=== PATIENT | female | born 1985 | race Caucasian/White ===

== ENCOUNTER → 2016-10-23 | Outpatient (CLI) | payer BC ==
[~2016-10-23] MED LIST: ABL/5 PO; ACET-1256 PO; ARIP2TAB3 PO; DIVA500T59 PO; MELO7.5T5 PO; METH5TAB4 PO; TRAM-10 PO; gabapentin PO
[2016-10-23 09:37] LABS: BASO % 0.2 %; BASO ABS # 0.01 K/uL (0-0.2); COMPLETE YES; EOS % 1.6 %; HEMATOCRIT 41.2 % (37-47); LYMPH % 48.8 %; LYMPH ABS # 2.78 K/uL (1.2-3.4); MEAN CELL VOLUME 90.4 fL (80-100); MEAN CORPUSCULAR HEMOGLOBIN 31.1 pg (25-34); MEAN CORPUSCULAR HGB CONC 34.5 g/dl (32-36); MEAN PLATELET VOLUME 10.4 fL (7.4-10.4); MONO % 9.6 %; NEUT % 39.8 %; PLATELET COUNT 221 K/uL (130-400); RED BLOOD COUNT 4.56 M/uL (4.2-5.4)
[2016-10-23 09:46] LABS: BLOOD UREA NITROGEN 16 mg/dl (7-18); CALCIUM 8.5 mg/dl (8.5-10.1); CARBON DIOXIDE 23 mmol/L (21-32); CHLORIDE 111 mmol/L (98-107); CREATININE 0.69 mg/dl (0.60-1.20); GLUCOSE 116 mg/dl (70-99); POTASSIUM 4.3 mmol/L (3.5-5.1); SODIUM 142 mmol/L (136-145)
[2016-10-23 09:58] LABS: CHOLESTEROL 161 mg/dl (0-200); CHOLESTEROL/HDL RATIO 3.6; HDL CHOLESTEROL 45 mg/dl; LDL CHOLESTEROL CALCULATED 92 mg/dl; TRIGLYCERIDES 120 mg/dl (0-150); VERY LOW DENSITY LIPOPROT CALC 24 mg/dl
== END | disposition home or self-care (01) ==
LOC: C.LAB1850 07:36
PROVIDERS: ATTEND Nurse Practitioner Adult Health
DX: R53.83 Other fatigue (principal); E66.01 Morbid (severe) obesity due to excess calories; R63.5 Abnormal weight gain

== ENCOUNTER → 2017-01-04 | Outpatient (CLI) | payer BC, OTHER ==
--- NOTE | 2017-01-04 15:19 | DIAGNOSTIC IMAGING REPORT ---
LUMBAR SPINE 5 VIEWS HISTORY: LOWER BACK PAIN COMPARISON: None. FINDINGS: There is no fracture. No subluxation. Disc spaces are preserved. S1 is demonstrated to be a transitional vertebra. The sacrum appears intact. IMPRESSION: No fracture or subluxation within the lumbar spine. Electronically signed by: Colin Jennings M.D. 01/04/2017 3:18 PM Dictated Date/Time: 01/04/2017 3:14 PM
== END | disposition home or self-care (01) ==
LOC: C.RDSM 15:00
PROVIDERS: ATTEND Family Medicine
DX: M54.5 Low back pain (principal)

== ENCOUNTER → 2017-04-08 | Outpatient (CLI) | payer BC ==
[~2017-04-08] MED LIST changes: -ABL/5 PO; -DIVA500T59 PO; -METH5TAB4 PO
== END | disposition home or self-care (01) ==
LOC: C.PAPS 15:51
PROVIDERS: ATTEND Physician Assistant
DX: Z01.419 Encounter for gynecological examination (general) (routine) without abnormal findings (principal)

== ENCOUNTER → 2017-04-08 | Outpatient (CLI) | payer BC ==
[2017-04-11 02:41] LABS: CHLAMYDIA TRACH RNA*** NOT DETECTED (NOT DETECTED); GC (NEIS GONORRHOEAE)RNA** NOT DETECTED (NOT DETECTED)
== END | disposition home or self-care (01) ==
LOC: C.LABSPEC 15:56
PROVIDERS: ATTEND Physician Assistant
DX: Z11.3 Encounter for screening for infections with a predominantly sexual mode of transmission (principal)

== ENCOUNTER 2017-05-30 21:06 | Emergency (ER) | payer BC ==
[~2017-05-30] VITALS: Ht 162.6 cm; Wt 148.5 kg
[~2017-05-30 21:06] MED LIST changes: -TRAM-10 PO
[2017-05-30 21:09] VITALS: TEMP 36.4; Ht 162.6 cm; Wt 148.5 kg
[2017-05-30] MEDS ORDERED: TRAMADOL HCL 50 MG HOME PACK PO ONE (21:45)
[2017-05-30] MEDS ORDERED: TRAM-10 PO (21:48)
[2017-05-30 21:59] VITALS: BP 130/75; PULSE 91; O2SAT 96
--- NOTE | 2017-05-31 04:50 | EMERGENCY ROOM VISIT NOTE ---
History First contact with patient: 21:24 Chief Complaint: HIP PAIN Stated Complaint: PAIN IN HIPS, BACK POP History of Present Illness The patient is a 31 year old female who presents to the Emergency Room with complaints of ongoing right hip pain that radiates down her leg the past several months has been following with pain management and her family care doctor. Patient saw pain management today was given diclofenac and this did not help. Patient had x-rays done today and they were negative for fracture or malalignment of her pelvis. Patient has not seen orthopedic spine for this. Patient had SI joints injections the past and this did not help. Patient states she slipped and strained her back. She describes pain as aching, ranging in severity 8 out of 10 worse with movement and better with rest. She is in physical therapy in the past with no improvement of symptoms. Patient denies numbness, tingling, spinal pain, chest pain, dyspnea, fever, chills, IV drug abuse, loss of bowel or bladder control, saddle anesthesia. She is tolerate by mouth fluids and food. Review of Systems See HPI for pertinent positives & negatives. A total of 10 systems reviewed and were otherwise negative. Past Medical/Surgical History Medical Problems: (1) Bipolar 1 disorder (2) Obesity Family History No significant family history Social History Smoking Status: Current Every Day Smoker Marital Status: single Housing Status: lives alone Occupation Status: employed Current/Historical Medications Scheduled Aripiprazole (Abilify), 1 MG PO DAILY Meloxicam (Mobic), 15 MG PO DAILY [gabapentin], 100 MG PO HS Scheduled PRN Acetaminophen (Tylenol), 1,000 MG PO Q6 PRN for Pain Tramadol (Ultram), 1 TAB PO Q4H PRN for Pain Physical Exam Vital Signs Date Time Temp Pulse Resp B/P (MAP) Pulse Ox O2 Delivery O2 Flow Rate FiO2 05/30/17 21:59 91 22 130/75 96 05/30/17 21:09 36.4 88 20 166/100 98 Room Air Pain Rating (0-10): 10.0 Physical Exam VITALS: Vitals are noted on the nurse's note and reviewed by myself. Vital signs stable. GENERAL: Pleasant female, in no acute distress, nondiaphoretic, well-developed well-nourished. SKIN: Capillary reflex less than 2 seconds. HEENT: Normocephalic. PERRLA. EOMI. Nares patent. Mucous membranes moist. Neck is supple without nuchal rigidity. HEART: Regular rate and rhythm without murmurs gallops or rubs. LUNGS: Clear to auscultation bilaterally without wheezes, rales or rhonchi. No retractions or accessory muscle use. ABDOMEN: Positive bowel sounds x 4. Normal tympanic percussion. Soft, protuberant, obese, nontender, without masses or organomegaly. Denson sign negative. No guarding or rebound tenderness. MUSCULOSKELETAL: No gross musculoskeletal defects. No pedal edema. No calf tenderness. No thoracic or lumbar tenderness on exam. Positive straight leg raise on the right. Pelvis stable. Patient can ambulate without difficulties. NEURO: Patient was alert and oriented to person place and time. Normal sensation to light and sharp touch. Deep tendon reflexes 2+ patella bilaterally.. No focal neurological deficits. Medical Decision & Procedures Medications Administered Medications (Trade) Dose Ordered Sig/Dejan Route Start Time Stop Time Status Last Admin Dose Admin Tramadol HCl (Ultram Home Pack) 1 homepack UD ONCE PO 05/30/17 21:45 05/30/17 21:46 DC 05/30/17 21:58 1 HOMEPACK ED Course Prior records/ancillary studies reviewed. Triage Nursing notes reviewed. The patient's history was concerning for right hip pain down the leg. Differential diagnosis: Etiologies such as musculoskeletal, disc herniation, fracture, aortic disease, metastatic disease, cord compression, discitis, infection, renal colic, gastrointestinal, acute exacerbation of chronic back pain, sciatica, cauda equina, as well as others were entertained. Physical findings: As above. No focal neurologic findings noted. ER treatment provided: Ultram home pack On reassessment the patient felt better. Diagnostics interpreted by me: Deferred This appears to be consistent with lumbar radiculopathy. Patient was requesting a short supply of Ultram. This is given to her. She was counseled on narcotics and informed these are highly addictive. She is advised to see her family care for referral to orthopedic spine and she states she's not getting any improvement with pain management. Patient was advised to return to the ER immediately for severe pain, numbness, tingling, inability to walk, worsening signs or symptoms or as needed. Patient ambulated out of the ER without difficulties. She was neurovascularly and neurologically intact. The patient's physical examination and detailed history did not reveal any red flags for back pain such as those listed in the differential diagnosis. Therefore advanced diagnostics and consultations were felt to be unwarranted. By the evaluation outlined above emergent etiologies such as fracture, aortic disease, metastatic disease, infection, renal colic, gastrointestinal, cord compression, cauda equina, as well as others were deemed relatively unlikely. The pt informed about the findings as listed above. All questions were answered and pleased with the treatment. Return instructions were outlined and the patient was discharged in stable condition. Outpatient prescription management: Ultram Referral: The patient was referred back to primary care physician for follow-up in 2 to 3 days for a recheck of the current condition. Medical Decision As above [place] Drug Monitoring Program Search Results: patient reviewed within database, no issues identified Medication Reconcilliation Current Medication List: was personally reviewed by me Blood Pressure Screening Patient's blood pressure: Elevated blood pressure Blood pressure disposition: Elevated BP felt to be situational Impression Primary Impression: Lumbar radiculopathy, right Departure Information Dispostion Home / Self-Care Condition GOOD Prescriptions Tramadol (Ultram) 50 Mg Tab 1 TAB PO Q4H Y for Pain, #10 TAB For Initial Treatment Prov: Reyna Ervin ., ANGELIC 05/30/17 Forms WORK / SCHOOL INSTRUCTIONS, HOME CARE DOCUMENTATION FORM, IMPORTANT VISIT INFORMATION Patient Instructions [facility], ED Sciatica Additional Instructions Ultram 50 mg: Take 1-2 pills every four hours for breakthrough pain. Avoid alcohol, operating machinery or dangerous equipment, working on ladders or roofs , DRIVING, or situations where being under the influence may be dangerous. It is recommended to use an nzyx-tsu-lhzvxlu stool softener such as Colace, 100mg twice daily while taking this medication to avoid constipation. Ibuprofen(Motrin, Advil) may be used for fever or pain. Use 600mg every six hours as needed. Take with food. Avoid using more than 2400mg in a 24 hour period. Do not use 2400mg per day for more than three consecutive days without physician direction. Prolonged inappropriate use can lead to stomach upset or ulcers. This medication can be taken if you need to drive, work, or perform activities which may be dangerous when taking narcotic pain medication. (AND/OR) Acetaminophen(Tylenol) may be used for fever or pain. Use 1000mg every six hours as needed. Avoid using more than 3000mg in a 24 hour period. This medication can be taken if you need to drive, work, or perform activities which may be dangerous when taking narcotic pain medication. Rest and avoid heavy lifting until your symptoms resolve and then gradually return to full activity. A good rule of thumb is if it hurts your back to perform a certain activity, then it should be avoided until you are healthy again. A heating pad, warm compresses, or a hot shower may help with tight muscles and can be done several times a day as needed. Continue current medications. Return to the ER immediately for any numbness, tingling, severe pain, loss of control of your bowels or bladder, inability to walk, or as needed. Follow up with your primary care physician/orthopedics spine within 3-5 days for a recheck of your current condition.
== END 2017-05-30 22:00 | disposition home or self-care (01) ==
LOC: C.EDB 21:07 → C.EDD 22:00
DX: M54.16 Radiculopathy, lumbar region (principal); F31.9 Bipolar disorder, unspecified; E66.9 Obesity, unspecified; F17.210 Nicotine dependence, cigarettes, uncomplicated; Z79.899 Other long term (current) drug therapy

== ENCOUNTER → 2017-05-30 | Outpatient (CLI) | payer BC ==
--- NOTE | 2017-05-30 09:53 | DIAGNOSTIC IMAGING REPORT ---
RIGHT HIP 2 VIEWS HISTORY: R HIP PAIN, SACROILIITIS Right COMPARISON: None. FINDINGS: No fracture or dislocation within the right hip. The visualized pelvic bones are intact. Cartilage spaces are maintained. Soft tissues are unremarkable. No radiopaque foreign bodies. IMPRESSION: No fracture or dislocation within the right hip. Electronically signed by: Colin Jennings M.D. 05/30/2017 9:51 AM Dictated Date/Time: 05/30/2017 9:49 AM
--- NOTE | 2017-05-30 09:57 | DIAGNOSTIC IMAGING REPORT ---
LEG LENGTH STUDY (WHOLE LEG) CLINICAL HISTORY: R HIP PAIN, SACROLITIS COMPARISON STUDY: None. FINDINGS: AP views of the bilateral lower extremities. The right and left femur measure approximately 47 cm and the right and left tibia measuring approximately 37 cm. No significant leg length discrepancy. Cartilage spaces are maintained. Prior left ACL repair. No fractures within the visualized lower extremities. Soft tissues are unremarkable. IMPRESSION: No significant leg length discrepancy. Electronically signed by: Colin Jennings M.D. 05/30/2017 9:55 AM Dictated Date/Time: 05/30/2017 9:52 AM
== END | disposition home or self-care (01) ==
LOC: C.RADBC 09:17
PROVIDERS: ATTEND Physician Assistant
DX: M25.551 Pain in right hip (principal); M46.1 Sacroiliitis, not elsewhere classified

== ENCOUNTER → 2017-11-14 | Outpatient (CLI) | payer BC ==
[~2017-11-14] MED LIST changes: +TRAM-10 PO
== END | disposition home or self-care (01) ==
LOC: C.LABSPEC 17:30
PROVIDERS: ATTEND Physician Assistant
DX: Z11.3 Encounter for screening for infections with a predominantly sexual mode of transmission (principal)

== ENCOUNTER 2020-01-02 00:30 | Inpatient (IN) ==
[2020-01-02] MEDS ORDERED: OXYTOCIN 30 UNITS/500 ML BAG IV PRN ×2 (00:47→12:50)
[2020-01-02 01:07] LABS: Appearance Urine Cloudy (Clear); Bacteria Urine Automated 1+ (Negative); Bilirubin Urine Negative (Negative); Blood Urine 3+ (Negative); Color Urine Yellow; Epithelial Cell Urine Auto >30 /lpf (0-5); Glucose Urine UA Negative (Negative); Ketones Urine Negative (Negative); Leukocyte Esterase Urine Trace (Negative); Nitrite Urine Negative (Negative); Protein Urine 1+ (Negative); RBC Urine Automated >30 /hpf (0-4); Specific Gravity Urine 1.022 (1.000-1.030); Urobilinogen Urine Negative (Negative)
[2020-01-02 01:16] LABS: Hematocrit (blood only) 42.9 % (37-47); Hemoglobin 15.2 g/dL (12.0-16.0); Mean Corpuscular Hemoglobin 32.8 pg (25-34); Mean Corpuscular Hgb Conc 35.4 g/dL (32-36); Mean Corpuscular Volume 92.7 fL (80-100); Mean Platelet Volume 11.1 fL (7.4-10.4); Platelet Count 176 K/uL (130-400); RDW Coefficient of Variation 13.9 % (11.5-14.5); RDW Standard Deviation 46.7 fL (36.4-46.3); Red Blood Count 4.63 M/uL (4.2-5.4)
--- NOTE | 2020-01-02 01:20 | History & Physical Report ---
Date of Service January 02, 2020 Assessment & Plan (1) Insulin controlled gestational diabetes mellitus (GDM) during : (2) Bipolar 2 disorder: (3) Generalized anxiety disorder: (4) Bipolar 1 disorder: (5) Obesity: (6) Supervision of multigravida of advanced maternal age: 34yo at 38.4 weeks GA. SROM 1. Fetus: Cat 1 2. Delivery: Patient would like to TOLAC/. Consent reviewed and signed. Will plan to proceed with rLTCS is unchanged by am. 3. A2gDM: q1hr BGs. Protocol is >130 4. Substance abuse: UDS. SW consult post 5. GBS negative History of Present Illness Primary Care Provider: Rafa Amor 34yo at 38.4 weeks GA. Present with LOF. Reports large gush and persistent trickle. Reporting that contractions are starting to increase. Denies VB. Good FM. complicated prior for distress at prolonged dilation to 9.5cm. Patient desires TOLAC. Risk of TOLAC/ discussed including failure, need for urgent/emergent and uterine rupture. further complicated by noncompliant A2gDM, AMA, substance abuse during , RH negative, obesity, multiple psychiatric issues and tobacco use. EFW 3300g 74% on 12/22. AC 68% on 12/28 Allergies Allergy/AdvReac Type Severity Reaction Status Date / Time capsaicin Allergy Unknown facial Verified 12/29/19 14:19 swelling diclofenac Allergy Unknown facial Verified 12/29/19 14:19 swelling Diclopak Allergy Unknown facial Verified 06/29/15 19:51 swelling lamotrigine [From Lamictal] Allergy Rash Verified 12/29/19 14:19 Home Medications Home Medications Medication Instructions Recorded Confirmed Type dextroamphetamine-amphetamine 10 mg PO BID 12/29/19 01/02/20 History [Adderall] lurasidone [Latuda] 40 mg PO DAILY PRN 12/29/19 01/02/20 History vit no.[id number] 1 tab PO DAILY 12/29/19 01/02/20 History [ Vitamin] Patient History Medical History (Updated 01/02/20 @ 05:47 by Colin Bagley MD) Bipolar 1 disorder (Chronic) Depression (Chronic) Marijuana abuse Obesity (Chronic) Varicella Surgical History History of section No significant past surgical history S/P ACL repair Status post left knee surgery Family History Father Father Stroke Diabetes Mother Hypertension Social History Preferred Language: Setswana Communication Ability: Effective Billing Customer Service Representative Required: No Beliefs That Will Affect Care: None marital status: single marital status details: KINA Cheney [phone]) [phone] Current Living Situation: Alone current occupational status: unemployed Other Information That Helps Us Care for You: No Feels Safe at Home: Yes Safety Concerns: Feels Safe At This Time Smoking Status: Current every day smoker Tobacco Type: cigarettes ; Cigarettes Per Day: 5-10 ; Do You Dip or Chew Tobacco: No ; Second Hand Exposure: Yes ; Hx Alcohol Use: No Hx Substance Use: Yes substance use type: marijuana Substance Use Type Other:: pt states she has a medical marijuana card Last Used Substance: Just Prior to Arrival Physical Exam Gastrointestinal (Abdomen): Percussion/Palpation: abdomen soft; abdomen nontender, no guarding and abdomen not rigid Genitourinary: OB Exam Abdomen: + vertex and + irregular contractions Manual OB Exam: + cervical dilation 1 cm, + cervical effacement 50%, + station - 2 and + amniotic fluid (Grossly ruptured. ) clear and nitrazine positive OB Exam Monitor Tracing: + external FHT monitor used, + external uterine monitor used, + category I and + normal FHT variability Coding Level of Care Code None Diagnoses Insulin controlled gestational diabetes mellitus (GDM) during O24.414 Bipolar 2 disorder F31.81 Generalized anxiety disorder F41.1 Bipolar 1 disorder F31.9 Obesity E66.9 Supervision of multigravida of advanced maternal age O09.529
[2020-01-02 01:23] LABS: Cast Urine Automated 0 /lpf (0-5)
[2020-01-02 01:27] LABS: Amphetamines+Metham, Urine Pos (Neg); Barbiturates, Urine Neg (Neg); Benzodiazepine, Urine Neg (Neg); Cocaine, Urine Neg (Neg); MDMA (Ecstacy), Urine Neg (Neg); Methadone, Urine Neg (Neg); Opiate, Urine Neg (Neg); Phencyclidine, Urine Neg (Neg)
[2020-01-02] MEDS ORDERED: CALCIUM CARBONATE 500 MG CHEWABLE TAB PO PRN (01:47)
[2020-01-02] MEDS ORDERED: CALCIUM CARBONATE 500 MG CHEWABLE TAB ONE (01:58)
[2020-01-02 02:17] LABS: Creatinine Clr Calc Pharmacy 143.4 ml/min; Est GFR (African American) 132.6; Est GFR (Non-African American) 114.4
[2020-01-02 02:38] LABS: Protein Creatinine Ratio Urine 0.3 (0-0.2); Total Protein Urine Random 42.5 mg/dl (0-11.9)
[2020-01-02] MEDS ORDERED: BUTORPHANOL TARTRATE 1 MG/ML VIAL IV ONE (04:43)
[2020-01-02] MEDS ORDERED: LABETALOL HCL 200 MG TAB PO ONE (05:00)
[2020-01-02] MEDS: LACTATED RINGER'S 1,000 ML IV PRN ×2 (05:15→08:46)
[2020-01-02] MEDS ORDERED: fentaNYL citrate 100 MCG/2 ML VIAL ONE (05:16)
[2020-01-02] MEDS ORDERED: BUPIVACAINE 0.25% 30 ML VIAL ONE (05:16)
[2020-01-02] MEDS ORDERED: ePHEDrine sulfate 50 MG/ML AMP ONE (05:16)
[2020-01-02] MEDS ORDERED: fentaNYL 2MCG/ML ROPIV 1.25MG/ML 100 ML BAG EPI ONE (05:17)
--- NOTE | 2020-01-02 05:47 | Anesthesiology Consultation ---
Date of Service January 02, 2020 The patient would like to try to . She has a history of substance abuse. Assessment & Plan Chart Review Chart Review: Patient NOT seen in Pre Admission Testing and Acceptable Risk for Labor Epidural Consults Requested none ASA ASA3 Proposed Anesthesia Anesthesia Type: Labor Epidural and CSE Risk / Benefits Reviewed With: PT / POA / Parent / Guardian, Accepts Plan and Informed Consent Obtained History Height/Weight Height: 5 ft 4 in Weight: 108.862 kg Allergies Allergy/AdvReac Type Severity Reaction Status Date / Time capsaicin Allergy Unknown facial Verified 12/29/19 14:19 swelling diclofenac Allergy Unknown facial Verified 12/29/19 14:19 swelling Diclopak Allergy Unknown facial Verified 06/29/15 19:51 swelling lamotrigine [From Lamictal] Allergy Rash Verified 12/29/19 14:19 Medications Home Medications Medication Instructions Recorded Confirmed Last Taken dextroamphetamine-amphetamine 10 mg PO BID 12/29/19 01/02/20 01/01/20 21:00 [Adderall] lurasidone [Latuda] 40 mg PO DAILY PRN 12/29/19 01/02/20 01/01/20 04:00 vit no.[id number] 1 tab PO DAILY 12/29/19 01/02/20 01/01/20 14:00 [ Vitamin] Active Medications Generic Name Dose Route Start Last Admin Trade Name Hanyq PRN Reason Stop Dose Admin Lactated Ringer's 1,000 mls @ 125 mls/hr 01/02/20 00:47 01/02/20 05:15 Lr IV 01/04/20 00:46 999 mls/hr .Q8H PRN Administration L&D Protocol Protocol NPO Date Last Intake of Fluids: 01/02/20 Time Last Intake of Fluids: 03:30 Date Last Intake of Solids: 01/02/20 Time Last Intake of Solids: 02:30 Past Medical History Medical History (Updated 01/02/20 @ 05:47 by Colin Bagley MD) Bipolar 1 disorder (Chronic) Depression (Chronic) Marijuana abuse Obesity (Chronic) Varicella Exercise / Class Metabolic Activity II 4-5 Yardwork/Stairs/Walk up hill Past Family History Family History Father Father Stroke Diabetes Mother Hypertension Past Surgical History Surgical History History of section No significant past surgical history S/P ACL repair Status post left knee surgery Past Anesthesia History No Hx of Anesthesia Complications and No Family Hx of Anesthesia Complications History of PONV No Hx of PONV and No Hx of Motion Sickness Social History Smoking Status: Current every day smoker tobacco type: cigarettes Smoking cigarettes per day: 5-10 Do You Dip or Chew Tobacco: No Hx Alcohol Use: No Hx Substance Use: Yes substance use type: marijuana Substance Use Type Other:: pt states she has a medical marijuana card Last Used Substance: Just Prior to Arrival Review of Systems no chest pain or sob Physical Exam Vital Signs Last Vital Signs Temp 36.6 C 01/02/20 03:00 Pulse 92 H 01/02/20 04:38 Resp 20 01/02/20 00:51 BP 141/101 H 01/02/20 04:38 SpO2 98 ENMT Mouth: no TMJ abnormality Thyromental Distance: > or= 3.5 Finger Breadths Mallampati Class: II Neck normal visual inspection Respiratory normal respiratory effort Auscultation: lungs clear to auscultation bilaterally Cardiovascular Rate/Rhythm: regular rate and regular rhythm Musculoskeletal Spine: normal cervical ROM Neurologic moves all extremities Psychiatric Orientation: alert and oriented x 3 Testing Laboratory Results 01/02/20 01:02 01/02/20 01:37 Urine Color Yellow 01/02/20 00:53 Urine Appearance Cloudy (Clear) A 01/02/20 00:53 Urine pH 6.0 (4.5-7.5) 01/02/20 00:53 Ur Specific [place] 1.022 (1.000-1.030) 01/02/20 00:53 Urine Protein 1+ (Negative) H 01/02/20 00:53 Urine Glucose (UA) Negative (Negative) 01/02/20 00:53 Urine Ketones Negative (Negative) 01/02/20 00:53 Urine Nitrite Negative (Negative) 01/02/20 00:53 Ur Leukocyte Esterase Trace (Negative) H 01/02/20 00:53 Urine WBC (Auto) 5-10 /hpf (0-5) H 01/02/20 00:53 Urine RBC (Auto) >30 /hpf (0-4) H 01/02/20 00:53 U Hyaline Cast (Auto) 0 /lpf (0-5) 01/02/20 00:53 U Epithel Cells (Auto) >30 /lpf (0-5) H 01/02/20 00:53 Urine Bacteria (Auto) 1+ (Negative) H 01/02/20 00:53 Blood Type A Negative 01/02/20 01:02 Antibody Screen NEGATIVE 01/02/20 01:02 01/02/20 01/02/20 01/02/20 04:10 03:06 02:02 POC Glucose 87 117 H 99
[2020-01-02] MEDS ORDERED: CEFAZOLIN 3000MG 65 ML IV SCH (06:00)
[2020-01-02] MEDS ORDERED: CITRIC ACID/SODIUM CITRATE 15 ML UDC PO SCH (06:00)
[2020-01-02] MEDS ORDERED: NALOXONE HCL 0.4 MG/1 ML VIAL/CARP IV PRN ×2 (06:13→17:23)
[2020-01-02] MEDS ORDERED: NALOXONE HCL 1 MG in SODIUM CHLORIDE 0.9% 1000ML 1,000 ML IV PRN ×2 (06:13→17:23)
[2020-01-02] MEDS ORDERED: NALBUPHINE HCL INJ 10 MG/ML AMP IV PRN ×2 (06:13→17:23)
[2020-01-02] MEDS ORDERED: ONDANSETRON INJ 2 MG/ML 2 ML VIAL IV PRN ×2 (06:13→17:23)
[2020-01-02] MEDS ORDERED: fentaNYL 2MCG/ML ROPIV 1.25MG/ML 100 ML BAG EPI PRN (06:13)
[2020-01-02] MEDS ORDERED: DiphenhydrAMINE HCL 50 MG/ML VIAL IV PRN ×2 (06:13→17:23)
[2020-01-02] MEDS ORDERED: ePHEDrine sulfate 50 MG/ML AMP IV PRN ×2 (06:13→17:23)
--- NOTE | 2020-01-02 08:07 | Labor Progress Brief Note ---
Date of Service January 02, 2020 Subjective Reason For Note: Requested By RN Current Pain Level(1-10): 10 Presented to bedside to help calm patient so that epidural could be placed Assessment & Plan (1) Insulin controlled gestational diabetes mellitus (GDM) during : (2) Bipolar 2 disorder: (3) Generalized anxiety disorder: (4) Bipolar 1 disorder: (5) Obesity: (6) Supervision of multigravida of advanced maternal age: 34yo at 38.4 weeks GA. SROM 1. Fetus: Cat 1 2. Delivery: Patient would like to TOLAC/. Consent reviewed and signed. Progressing un-augmented. Discussed that if labor stalls a indicated 3. A2gDM: q1hr BGs. Protocol is >130 4. Substance abuse: UDS: Meth/MJ. Confirmation pending. SW consult 5. GBS negative Physical Exam Genitourinary: OB Exam Abdomen: + vertex Manual OB Exam: + cervical dilation (3.5), + cervical effacement 70%, + station -2 and + amniotic fluid clear OB Exam Monitor Tracing: + external FHT monitor used, + external uterine monitor used, + category I and + normal FHT variability; no late decelerations present and no variable decelerations Results & Data Vital Signs (Past 12 Hours) Vital Signs Temp Pulse Resp BP Pulse Ox 01/02/20 08:02 85 100 01/02/20 07:57 82 100 01/02/20 07:52 91 H 100 01/02/20 07:50 86 116/60 01/02/20 07:47 88 100 01/02/20 07:42 81 100 01/02/20 07:37 86 100 01/02/20 07:32 89 100 01/02/20 07:27 78 100 01/02/20 07:22 86 100 01/02/20 07:19 37.0 C 93 H 20 136/76 01/02/20 07:17 84 100 01/02/20 07:13 97 H 140/83 01/02/20 07:12 95 H 100 01/02/20 07:08 97 H 142/86 H 01/02/20 07:07 95 H 100 01/02/20 07:04 94 H 139/86 01/02/20 07:02 84 100 01/02/20 07:00 16 01/02/20 06:58 96 H 135/85 01/02/20 06:57 92 H 100 01/02/20 06:54 92 H 136/86 01/02/20 06:52 98 H 100 01/02/20 06:49 103 H 16 138/85 01/02/20 06:47 103 H 100 01/02/20 06:44 83 16 138/83 01/02/20 06:42 83 99 01/02/20 06:39 18 01/02/20 06:38 87 139/85 01/02/20 06:37 80 98 01/02/20 06:34 102 H 16 137/92 01/02/20 06:32 103 H 100 01/02/20 06:29 100 H 150/83 H 01/02/20 06:28 18 01/02/20 06:27 99 H 98 01/02/20 06:23 98 H 16 134/86 01/02/20 06:22 103 H 98 01/02/20 06:17 112 H 16 130/80 98 01/02/20 06:14 96 H 16 145/83 H 01/02/20 06:12 103 H 18 137/80 98 01/02/20 06:11 108 H 141/88 H 01/02/20 06:10 18 01/02/20 06:08 102 H 16 128/68 01/02/20 06:07 98 H 98 01/02/20 06:06 92 H 138/70 01/02/20 06:05 107 H 18 144/80 H 01/02/20 06:02 99 H 98 01/02/20 06:01 94 H 155/95 H 01/02/20 06:00 36.5 C 18 01/02/20 05:57 104 H 99 01/02/20 05:52 93 H 99 01/02/20 05:47 96 H 99 01/02/20 04:38 92 H 141/101 H 01/02/20 04:09 86 164/108 H 01/02/20 03:00 36.6 C 01/02/20 01:20 86 150/103 H 01/02/20 00:51 36.8 C 86 20 150/103 H Coding Level of Care Code None Diagnoses Insulin controlled gestational diabetes mellitus (GDM) during O24.414 Bipolar 2 disorder F31.81 Generalized anxiety disorder F41.1 Bipolar 1 disorder F31.9 Obesity E66.9 Supervision of multigravida of advanced maternal age O09.529
[2020-01-02] MEDS: AMPHETAMINE ASP/SULF/DEXTRAMPH 10 MG TAB PO SCH ×2 (08:36→19:27)
[2020-01-02] MEDS: NICOTINE 7 MG/24 HR TDSY TD SCH (10:03)
--- NOTE | 2020-01-02 12:45 | Labor Progress Brief Note ---
Date of Service January 02, 2020 Subjective Comfortable with epidural. FHT Cat 1 [place]y Q 2-4 SVE /-2 Discussed with patient that will start pitocin, in the hopes of more effective ctx. Discussed that we will recheck in a few hours. If no cervical change, then will plan for section. She is agreeable to this. Results & Data Vital Signs (Past 12 Hours) Vital Signs Temp Pulse Resp BP Pulse Ox 01/02/20 12:37 97 H 99 01/02/20 12:35 93 H 146/85 H 01/02/20 12:32 102 H 99 01/02/20 12:27 117 H 99 01/02/20 12:22 101 H 100 01/02/20 12:21 90 153/91 H 01/02/20 12:17 106 H 99 01/02/20 12:12 96 H 98 01/02/20 12:07 92 H 99 01/02/20 12:05 102 H 140/96 01/02/20 12:02 100 H 98 01/02/20 11:57 117 H 97 01/02/20 11:52 99 H 99 01/02/20 11:50 104 H 130/71 01/02/20 11:47 97 H 100 01/02/20 11:42 104 H 98 01/02/20 11:37 108 H 100 01/02/20 11:35 108 H 142/89 H 01/02/20 11:32 111 H 100 01/02/20 11:27 98 H 92 01/02/20 11:22 108 H 100 01/02/20 11:20 116 H 139/97 01/02/20 11:17 108 H 100 01/02/20 11:13 116 H 89 L 01/02/20 11:12 104 H 93 01/02/20 11:07 112 H 100 01/02/20 11:06 36.8 C 100 H 20 140/78 01/02/20 11:02 111 H 100 01/02/20 10:57 97 H 100 01/02/20 10:52 102 H 100 01/02/20 10:50 111 H 135/90 01/02/20 10:47 94 H 100 01/02/20 10:46 105 H 88 L 01/02/20 10:42 102 H 100 03/14/20 10:37 95 H 100 01/02/20 10:36 101 H 20 166/86 H 01/02/20 10:32 100 H 100 01/02/20 10:27 96 H 100 01/02/20 10:22 108 H 100 01/02/20 10:21 102 H 147/91 H 01/02/20 10:20 100 H 87 L 01/02/20 10:17 98 H 100 01/02/20 10:12 100 H 99 01/02/20 10:07 100 H 20 151/84 H 100 01/02/20 10:03 92 H 82 L 01/02/20 10:02 90 100 01/02/20 09:58 105 H 87 L 01/02/20 09:57 97 H 100 01/02/20 09:52 97 H 100 01/02/20 09:50 94 H 135/84 01/02/20 09:47 102 H 100 01/02/20 09:42 91 H 98 01/02/20 09:37 101 H 128/80 100 01/02/20 09:32 91 H 100 01/02/20 09:27 92 H 100 01/02/20 09:22 87 100 01/02/20 09:20 92 H 18 131/79 01/02/20 09:17 100 H 100 01/02/20 09:12 94 H 100 01/02/20 09:07 93 H 100 01/02/20 09:05 96 H 137/80 01/02/20 09:02 36.8 C 103 H 20 98 01/02/20 08:57 96 H 100 01/02/20 08:52 94 H 100 01/02/20 08:50 101 H 145/89 H 01/02/20 08:47 100 H 100 01/02/20 08:42 110 H 100 01/02/20 08:37 102 H 100 01/02/20 08:35 101 H 142/88 H 01/02/20 08:32 91 H 100 01/02/20 08:30 20 01/02/20 08:27 86 99 01/02/20 08:22 97 H 100 01/02/20 08:21 88 138/83 01/02/20 08:17 88 100 01/02/20 08:12 88 100 01/02/20 08:07 84 100 01/02/20 08:06 92 H 116/69 01/02/20 08:03 92 H 78 L 01/02/20 08:02 85 100 01/02/20 07:57 82 100 01/02/20 07:52 91 H 100 01/02/20 07:50 86 116/60 01/02/20 07:47 88 100 01/02/20 07:42 81 100 01/02/20 07:37 86 100 01/02/20 07:32 89 100 01/02/20 07:27 78 100 01/02/20 07:22 86 100 01/02/20 07:19 37.0 C 93 H 20 136/76 01/02/20 07:17 84 100 01/02/20 07:13 97 H 140/83 01/02/20 07:12 95 H 100 01/02/20 07:08 97 H 142/86 H 01/02/20 07:07 95 H 100 01/02/20 07:04 94 H 139/86 01/02/20 07:02 84 100 01/02/20 07:00 16 01/02/20 06:58 96 H 135/85 01/02/20 06:57 92 H 100 01/02/20 06:54 92 H 136/86 01/02/20 06:52 98 H 100 01/02/20 06:49 103 H 16 138/85 01/02/20 06:47 103 H 100 01/02/20 06:44 83 16 138/83 01/02/20 06:42 83 99 01/02/20 06:39 18 01/02/20 06:38 87 139/85 01/02/20 06:37 80 98 01/02/20 06:34 102 H 16 137/92 01/02/20 06:32 103 H 100 01/02/20 06:29 100 H 150/83 H 01/02/20 06:28 18 01/02/20 06:27 99 H 98 01/02/20 06:23 98 H 16 134/86 01/02/20 06:22 103 H 98 01/02/20 06:17 112 H 16 130/80 98 01/02/20 06:14 96 H 16 145/83 H 01/02/20 06:12 103 H 18 137/80 98 01/02/20 06:11 108 H 141/88 H 01/02/20 06:10 18 01/02/20 06:08 102 H 16 128/68 01/02/20 06:07 98 H 98 01/02/20 06:06 92 H 138/70 01/02/20 06:05 107 H 18 144/80 H 01/02/20 06:02 99 H 98 01/02/20 06:01 94 H 155/95 H 01/02/20 06:00 36.5 C 18 01/02/20 05:57 104 H 99 01/02/20 05:52 93 H 99 01/02/20 05:47 96 H 99 01/02/20 04:38 92 H 141/101 H 01/02/20 04:09 86 164/108 H 01/02/20 03:00 36.6 C 01/02/20 01:20 86 150/103 H 01/02/20 00:51 36.8 C 86 20 150/103 H Coding Level of Care Code None
[2020-01-02] MEDS ORDERED: CITRIC ACID/SODIUM CITRATE 15 ML UDC ONE (16:17)
--- NOTE | 2020-01-02 16:19 | Labor Progress Brief Note ---
Date of Service January 02, 2020 Subjective Comfortable. FHT Cat 1 [place] Q 2 Cervix: no change, still 4-5/90/-2. I discussed with patient that, even with addition of pitocin, no cervical change throughout the day today. Given her history of requiring when she was dilated to 9.5cm, and given that she has failed to dilate throughout the day today, I am recommending that she undergo repeat section at this time. She is agreeable. Reviewed risks, benefits, alternatives, including bleeding, scarring, damage to surrounding tissues/organs. Discussed that prior surgery increases her risk of complications. Informed consent obtained. Will proceed to OR. Results & Data Vital Signs (Past 12 Hours) Vital Signs Temp Pulse Resp BP Pulse Ox 01/02/20 16:12 89 96 01/02/20 16:07 106 H 98 01/02/20 16:06 96 H 141/90 H 01/02/20 16:02 102 H 99 01/02/20 15:57 104 H 99 01/02/20 15:52 113 H 98 01/02/20 15:50 106 H 142/95 H 01/02/20 15:47 106 H 99 01/02/20 15:42 108 H 100 01/02/20 15:37 101 H 98 01/02/20 15:36 100 H 138/81 01/02/20 15:32 92 H 96 01/02/20 15:27 92 H 100 01/02/20 15:22 95 H 99 01/02/20 15:20 90 136/81 01/02/20 15:17 108 H 99 01/02/20 15:12 100 H 99 01/02/20 15:07 90 99 01/02/20 15:06 37.0 C 88 16 140/85 01/02/20 15:02 85 97 01/02/20 14:57 95 H 96 01/02/20 14:52 84 95 01/02/20 14:51 83 132/75 01/02/20 14:47 86 96 01/02/20 14:42 90 95 01/02/20 14:37 87 97 01/02/20 14:35 86 132/72 01/02/20 14:32 85 95 01/02/20 14:27 88 95 01/02/20 14:22 83 96 03/14/20 14:20 90 132/74 03/20 14:17 90 97 20 14:12 87 95 01/02/20 14:07 90 96 01/02/20 14:06 83 140/76 01/02/20 14:02 87 95 01/02/20 13:57 87 95 01/02/20 13:52 92 H 96 01/02/20 13:50 103 H 119/74 01/02/20 13:47 93 H 96 01/02/20 13:42 87 95 01/02/20 13:37 94 H 98 01/02/20 13:35 110 H 127/79 01/02/20 13:32 87 94 01/02/20 13:27 91 H 94 01/02/20 13:22 100 H 95 01/02/20 13:21 92 H 133/83 01/02/20 13:17 91 H 94 01/02/20 13:12 86 97 01/02/20 13:07 86 95 01/02/20 13:06 93 H 143/83 H 01/02/20 13:02 95 H 99 01/02/20 13:00 36.8 C 20 01/02/20 12:57 96 H 99 01/02/20 12:52 98 H 99 01/02/20 12:50 101 H 146/76 H 01/02/20 12:47 99 H 99 01/02/20 12:42 97 H 100 01/02/20 12:37 97 H 99 01/02/20 12:35 93 H 146/85 H 01/02/20 12:32 102 H 99 01/02/20 12:27 117 H 99 01/02/20 12:22 101 H 100 01/02/20 12:21 90 153/91 H 01/02/20 12:17 106 H 99 01/02/20 12:12 96 H 98 01/02/20 12:07 92 H 99 01/02/20 12:05 102 H 140/96 01/02/20 12:02 100 H 98 01/02/20 11:57 117 H 97 01/02/20 11:52 99 H 99 01/02/20 11:50 104 H 130/71 01/02/20 11:47 97 H 100 01/02/20 11:42 104 H 98 01/02/20 11:37 108 H 100 03/14/20 11:35 108 H 142/89 H 01/02/20 11:32 111 H 100 01/02/20 11:27 98 H 92 01/02/20 11:22 108 H 100 01/02/20 11:20 116 H 139/97 01/02/20 11:17 108 H 100 01/02/20 11:13 116 H 89 L 01/02/20 11:12 104 H 93 01/02/20 11:07 112 H 100 01/02/20 11:06 36.8 C 100 H 20 140/78 01/02/20 11:02 111 H 100 01/02/20 10:57 97 H 100 01/02/20 10:52 102 H 100 01/02/20 10:50 111 H 135/90 01/02/20 10:47 94 H 100 01/02/20 10:46 105 H 88 L 01/02/20 10:42 102 H 100 01/02/20 10:37 95 H 100 01/02/20 10:36 101 H 20 166/86 H 01/02/20 10:32 100 H 100 01/02/20 10:27 96 H 100 01/02/20 10:22 108 H 100 01/02/20 10:21 102 H 147/91 H 01/02/20 10:20 100 H 87 L 01/02/20 10:17 98 H 100 01/02/20 10:12 100 H 99 01/02/20 10:07 100 H 20 151/84 H 100 01/02/20 10:03 92 H 82 L 01/02/20 10:02 90 100 01/02/20 09:58 105 H 87 L 01/02/20 09:57 97 H 100 01/02/20 09:52 97 H 100 01/02/20 09:50 94 H 135/84 01/02/20 09:47 102 H 100 01/02/20 09:42 91 H 98 01/02/20 09:37 101 H 128/80 100 01/02/20 09:32 91 H 100 01/02/20 09:27 92 H 100 01/02/20 09:22 87 100 01/02/20 09:20 92 H 18 131/79 01/02/20 09:17 100 H 100 03/14/20 09:12 94 H 100 01/02/20 09:07 93 H 100 01/02/20 09:05 96 H 137/80 01/02/20 09:02 36.8 C 103 H 20 98 01/02/20 08:57 96 H 100 01/02/20 08:52 94 H 100 01/02/20 08:50 101 H 145/89 H 01/02/20 08:47 100 H 100 01/02/20 08:42 110 H 100 01/02/20 08:37 102 H 100 01/02/20 08:35 101 H 142/88 H 01/02/20 08:32 91 H 100 01/02/20 08:30 20 01/02/20 08:27 86 99 01/02/20 08:22 97 H 100 01/02/20 08:21 88 138/83 01/02/20 08:17 88 100 01/02/20 08:12 88 100 01/02/20 08:07 84 100 01/02/20 08:06 92 H 116/69 01/02/20 08:03 92 H 78 L 01/02/20 08:02 85 100 01/02/20 07:57 82 100 01/02/20 07:52 91 H 100 01/02/20 07:50 86 116/60 01/02/20 07:47 88 100 01/02/20 07:42 81 100 01/02/20 07:37 86 100 01/02/20 07:32 89 100 01/02/20 07:27 78 100 01/02/20 07:22 86 100 01/02/20 07:19 37.0 C 93 H 20 136/76 01/02/20 07:17 84 100 01/02/20 07:13 97 H 140/83 01/02/20 07:12 95 H 100 01/02/20 07:08 97 H 142/86 H 01/02/20 07:07 95 H 100 01/02/20 07:04 94 H 139/86 01/02/20 07:02 84 100 01/02/20 07:00 16 01/02/20 06:58 96 H 135/85 01/02/20 06:57 92 H 100 01/02/20 06:54 92 H 136/86 01/02/20 06:52 98 H 100 01/02/20 06:49 103 H 16 138/85 01/02/20 06:47 103 H 100 01/02/20 06:44 83 16 138/83 01/02/20 06:42 83 99 01/02/20 06:39 18 01/02/20 06:38 87 139/85 01/02/20 06:37 80 98 01/02/20 06:34 102 H 16 137/92 01/02/20 06:32 103 H 100 01/02/20 06:29 100 H 150/83 H 01/02/20 06:28 18 01/02/20 06:27 99 H 98 01/02/20 06:23 98 H 16 134/86 01/02/20 06:22 103 H 98 01/02/20 06:17 112 H 16 130/80 98 01/02/20 06:14 96 H 16 145/83 H 01/02/20 06:12 103 H 18 137/80 98 01/02/20 06:11 108 H 141/88 H 01/02/20 06:10 18 01/02/20 06:08 102 H 16 128/68 01/02/20 06:07 98 H 98 01/02/20 06:06 92 H 138/70 01/02/20 06:05 107 H 18 144/80 H 01/02/20 06:02 99 H 98 01/02/20 06:01 94 H 155/95 H 01/02/20 06:00 36.5 C 18 01/02/20 05:57 104 H 99 01/02/20 05:52 93 H 99 01/02/20 05:47 96 H 99 01/02/20 04:38 92 H 141/101 H Coding Level of Care Code None
[2020-01-02] MEDS ORDERED: MoRPHine SULFATE PF 1 MG/ML 10 ML AMP/VIAL ONE (16:24)
[2020-01-02] MEDS ORDERED: ONDANSETRON INJ 2 MG/ML 2 ML VIAL ONE (17:19)
[2020-01-02] MEDS ORDERED: METOCLOPRAMIDE HCL INJ 5 MG/ML 2 ML VIAL ONE (17:19)
[2020-01-02] MEDS ORDERED: OXYTOCIN 10 UNITS/ML VIAL ONE (17:19)
[2020-01-02] MEDS ORDERED: LIDOCAINE/EPINEPHRINE 2% 1:200,000 20 ML SDV ONE (17:19)
[2020-01-02] MEDS ORDERED: PROPOFOL IV EMULSION 10 MG/ML 20 ML VIAL IV ONE (17:19)
[2020-01-02] MEDS ORDERED: LIDOCAINE HCL 2% MPF (LOCAL) 5 ML VIAL INFIL ONE (17:19)
[2020-01-02] MEDS ORDERED: MoRPHine SULFATE PF 1 MG/ML 10 ML AMP/VIAL EPI ONE (17:23)
[2020-01-02] MEDS ORDERED: PROMETHAZINE HCL 12.5 MG in SODIUM CHLORIDE 0.9% 50 ML IV PRN (17:23)
[2020-01-02] MEDS ORDERED: KETOROLAC 30 MG/ML VIAL IV PRN (17:23)
[2020-01-02] MEDS ORDERED: NALOXONE HCL 0.08 MG in SYRINGE 1.8 ML IV PRN (17:23)
[2020-01-02] MEDS ORDERED: LACTATED RINGER'S 500 ML IV PRN (17:23)
[2020-01-02] MEDS ORDERED: MEPERIDINE HCL 25 MG/ML CARP/VIAL IV PRN (17:23)
[2020-01-02] MEDS ORDERED: DC INTRASPINAL MORPHINE SCH (17:30)
[2020-01-02] MEDS ORDERED: SODIUM CHLORIDE 0.9% 1000ML 1,000 ML IV SCH (17:30)
[2020-01-02] MEDS ORDERED: NO NARCOTICS OR SEDATIVES SCH (17:30)
[2020-01-02 17:50] LABS: Base Excess Cord Arterial Bld -1.5 mEq/L (-9-1.8); CO2 Cord Arterial Blood 64 mmHg (39.1-73.5); HCO3 Cord Arterial Blood 27 mmol/L (19.7-28.5); PO2 Cord Arterial Blood 13 mmHg (4.1-31.7); pH Cord Arterial Blood 7.25 (7.1-7.38)
[2020-01-02 17:52] LABS: Oxygen Sat Cord Arterial Blood < 60.0 % (<60)
--- NOTE | 2020-01-02 17:57 | Operative Report ---
PG Post Operative Report Pre & Post Diagnosis Operation Date: 01/02/20 16:40 Pre-Op Diagnosis: history of section x1. Failure to dilate. Post-Op Diagnosis: Same I identified the patient and participated in the time-out.: Yes Procedure Operation Date: 01/02/20 16:40 Actual Procedures Repeat low transverse Section in - Henrietta Roy DO Surgeon Henrietta Roy DO Oyster Shucker Marion Angelo MD Estimated Blood Loss 700 Findings Consistent with Post-Op Diagnosis Normal appearing uterus, fallopian tubes, ovaries. Large amount of adhesive disease between omentum to fascia. Specimens placenta, cord blood, cord gas Drains toro, clear yellow Anesthesia Type L&D Only Epidural Exists Complications none Disposition Accompanied Patient To Recovery: Yes Disposition: L&D Indications 34yo @ 38 01/25, history of section x 1. Presented with PPROM and began having contractions. Initially during her care period, she had desired a repeat section, but upon presentation to L&D last night, had desired trial of labor. She had signed consent, and progressed to 4-5cm overnight, but did not progress further throughout the day today. Given her history of dilating to 9.5cm and then requiring a , I discussed with her my concerns about continuing to attempt to labor without progression of dilation. She was agreeable to section. She signed informed consent. Description of Procedure The patient was taken to the operating room, where her epidural was redosed by anesthesia. She was prepared and draped in the usual sterile fashion in the supine position with a leftward tilt. Timeout was confirmed. She received 3 g of Ancef preoperatively. A Pfannenstiel skin incision was made with a scalpel and carried through to the underlying layer of fascia. The fascia was nicked at midline and this incision was extended bilaterally. The superior aspect fascial incision was grasped with [place] clamps X2 and the underlying rectus abdominis muscles were dissected sharply and bluntly. There was omentum that had adhered to the fascia. This was carefully dissected. The inferior aspect of the fascial incision was dissected sharply and bluntly. The bladder blade was placed. There was a small adhesion on the left side of the uterus to bladder, this was carefully taken down with Metzenbaum scissors. A low transverse uterine incision was made with a new scalpel. This incision was extended bilaterally. The was delivered from a cephalic presentation. The head was delivered, followed by shoulders and body. The mouth and nose were suctioned on the field and the cord was doubly clamped and cut. The baby was immediately handed off to the waiting registration officer. Cord segment was obtained for cord gases. Cord blood was obtained. The placenta was delivered spontaneously intact with a three-vessel cord. The uterus was exteriorized. The hysterotomy incision was reapproximated using a running locked stitch of 0 Vicryl. A second layer of the same suture was used to imbricate the incision. The posterior uterus was evaluated and found to be intact. The fallopian tubes and ovaries bilaterally appeared normal. The uterus was carefully returned to the abdomen. The hysterotomy incision was visualized and found to be hemostatic. The fascial incision was reapproximated using 0 Vicryl in a running stitch. The subcutaneous tissue was irrigated and reapproximated using 2-0 plain gut in a running stitch. The skin was reapproximated using 4-0 Vicryl in a running subcuticular stitch. Steri-Strips and a bandage were applied. Patient tolerated the procedure well, and is being taken to her room to recover at labor and delivery in stable and good condition. I attest to the content of the Intraoperative Record and any orders documented therein. Any exceptions are noted below.
--- NOTE | 2020-01-02 17:57 | Anesthesia Procedure Note ---
Date of Service January 02, 2020 Anesthesia Post Epidural Note Vital Signs Vital Signs: Temp Pulse Resp BP Pulse Ox 37.0 C 98 H 16 115/54 L 100 01/02/20 15:06 01/02/20 17:53 01/02/20 15:06 01/02/20 17:53 01/02/20 17:53 Notes Mental Status: alert / awake / arousable and participated in evaluation Nausea / Vomiting: adequately controlled Pain: adequately controlled Airway Patency, RR, SpO2: stable & adequate BP & HR: stable & adequate Hydration State: stable & adequate Neuraxial Anesthesia: was administered and sensory block is resolving Anesthetic Complications: no major complications apparent Epidural: Removed without complications and With tip intact
[2020-01-02 17:58] LABS: Base Excess Cord Venous Blood -2.1 mEq/L (-7.7-1.9); Cord Venous Blood HCO3 24 mmol/L (18.4-26.8); Cord Venous Blood PCO2 46 mmHg (30.4-57.2); Cord Venous Blood PO2 30 mmHg (14.1-43.3); Cord Venous Blood pH 7.34 (7.20-7.44)
[2020-01-02] MEDS ORDERED: SUPERCREAM 0.870% 15 GM JAR EXT PRN (18:20)
[2020-01-02] MEDS ORDERED: HYDROCORTISONE ACETATE 25 MG SUPP PR PRN (18:20)
[2020-01-02] MEDS ORDERED: BENZOCAINE 20% AER SPR 82.5 GM CAN EXT PRN (18:20)
[2020-01-02] MEDS ORDERED: DIPHTHERIA/TETANUS/PERTUSSIS 0.5 ML SYR/VIAL IM ONE (18:20)
[2020-01-02] MEDS ORDERED: LACTATED RINGER'S 1,000 ML IV SCH (18:20)
[2020-01-02] MEDS ORDERED: MAGNESIUM HYDROXIDE SUSP 30 ML UDC PO PRN (18:20)
[2020-01-02] MEDS ORDERED: SENNA 8.6 MG TAB PO PRN (18:20)
--- NOTE | 2020-01-02 19:10 | Anesthesiology Progress Note ---
Date of Service January 02, 2020 Anesthesia Post Procedure Vital Signs Vital Signs: Temp Pulse Resp BP Pulse Ox 01/02/20 19:09 96 H 128/76 01/02/20 19:08 96 H 100 01/02/20 19:03 90 100 01/02/20 18:59 87 124/76 01/02/20 18:58 94 H 100 01/02/20 18:53 90 100 01/02/20 18:49 88 126/76 01/02/20 18:48 92 H 95 01/02/20 18:43 95 H 16 122/66 100 01/02/20 18:39 95 H 122/66 01/02/20 18:38 91 H 100 01/02/20 18:33 95 H 20 100 01/02/20 18:29 92 H 113/58 L 01/02/20 18:28 90 100 01/02/20 18:25 94 H 20 100 01/02/20 18:23 94 H 100 01/02/20 18:19 96 H 114/55 L 01/02/20 18:18 92 H 100 01/02/20 18:13 88 16 120/60 100 01/02/20 18:09 120/60 01/02/20 18:08 94 H 100 01/02/20 18:04 99 H 134/56 L 01/02/20 18:03 99 H 20 120/60 100 01/02/20 18:02 157 H 169/131 H 01/02/20 17:58 102 H 85 L 01/02/20 17:53 37.0 C 98 H 20 115/54 L 100 01/02/20 17:48 99 H 100 01/02/20 16:42 94 H 97 01/02/20 16:37 98 H 97 01/02/20 16:35 90 137/88 01/02/20 16:32 94 H 98 01/02/20 16:27 97 H 98 01/02/20 16:22 96 H 100 01/02/20 16:20 100 H 133/90 01/02/20 16:17 89 100 01/02/20 16:12 89 96 01/02/20 16:07 106 H 98 01/02/20 16:06 96 H 141/90 H 01/02/20 16:02 102 H 99 01/02/20 15:57 104 H 99 03/14/20 15:52 113 H 98 20 15:50 106 H 142/95 H 1420 15:47 106 H 99 20 15:42 108 H 100 1420 15:37 101 H 98 1420 15:36 100 H 138/81 1420 15:32 92 H 96 1420 15:27 92 H 100 1420 15:22 95 H 99 1420 15:20 90 136/81 1420 15:17 108 H 99 20 15:12 100 H 99 20 15:07 90 99 1420 15:06 37.0 C 88 16 140/85 01/02/20 15:02 85 97 01/02/20 14:57 95 H 96 01/02/20 14:52 84 95 01/02/20 14:51 83 132/75 20 14:47 86 96 20 14:42 90 95 01/02/20 14:37 87 97 20 14:35 86 132/72 20 14:32 85 95 20 14:27 88 95 20 14:22 83 96 20 14:20 90 132/74 20 14:17 90 97 20 14:12 87 95 20 14:07 90 96 20 14:06 83 140/76 20 14:02 87 95 01/02/20 13:57 87 95 20 13:52 92 H 96 20 13:50 103 H 119/74 1420 13:47 93 H 96 1420 13:42 87 95 1420 13:37 94 H 98 1420 13:35 110 H 127/79 1420 13:32 87 94 1420 13:27 91 H 94 1420 13:22 100 H 95 1420 13:21 92 H 133/83 1420 13:17 91 H 94 1420 13:12 86 97 1420 13:07 86 95 01/02/20 13:06 93 H 143/83 H 01/02/20 13:02 95 H 99 01/02/20 13:00 36.8 C 20 01/02/20 12:57 96 H 99 01/02/20 12:52 98 H 99 01/02/20 12:50 101 H 146/76 H 01/02/20 12:47 99 H 99 01/02/20 12:42 97 H 100 01/02/20 12:37 97 H 99 01/02/20 12:35 93 H 146/85 H 01/02/20 12:32 102 H 99 01/02/20 12:27 117 H 99 01/02/20 12:22 101 H 100 01/02/20 12:21 90 153/91 H 01/02/20 12:17 106 H 99 01/02/20 12:12 96 H 98 01/02/20 12:07 92 H 99 01/02/20 12:05 102 H 140/96 01/02/20 12:02 100 H 98 01/02/20 11:57 117 H 97 01/02/20 11:52 99 H 99 01/02/20 11:50 104 H 130/71 01/02/20 11:47 97 H 100 01/02/20 11:42 104 H 98 01/02/20 11:37 108 H 100 01/02/20 11:35 108 H 142/89 H 01/02/20 11:32 111 H 100 01/02/20 11:27 98 H 92 01/02/20 11:22 108 H 100 01/02/20 11:20 116 H 139/97 01/02/20 11:17 108 H 100 01/02/20 11:13 116 H 89 L 01/02/20 11:12 104 H 93 01/02/20 11:07 112 H 100 01/02/20 11:06 36.8 C 100 H 20 140/78 01/02/20 11:02 111 H 100 01/02/20 10:57 97 H 100 01/02/20 10:52 102 H 100 01/02/20 10:50 111 H 135/90 01/02/20 10:47 94 H 100 01/02/20 10:46 105 H 88 L 01/02/20 10:42 102 H 100 01/02/20 10:37 95 H 100 03/14/20 10:36 101 H 20 166/86 H 01/02/20 10:32 100 H 100 01/02/20 10:27 96 H 100 01/02/20 10:22 108 H 100 01/02/20 10:21 102 H 147/91 H 01/02/20 10:20 100 H 87 L 01/02/20 10:17 98 H 100 01/02/20 10:12 100 H 99 01/02/20 10:07 100 H 20 151/84 H 100 01/02/20 10:03 92 H 82 L 01/02/20 10:02 90 100 01/02/20 09:58 105 H 87 L 01/02/20 09:57 97 H 100 01/02/20 09:52 97 H 100 01/02/20 09:50 94 H 135/84 01/02/20 09:47 102 H 100 01/02/20 09:42 91 H 98 01/02/20 09:37 101 H 128/80 100 01/02/20 09:32 91 H 100 01/02/20 09:27 92 H 100 01/02/20 09:22 87 100 01/02/20 09:20 92 H 18 131/79 01/02/20 09:17 100 H 100 01/02/20 09:12 94 H 100 01/02/20 09:07 93 H 100 01/02/20 09:05 96 H 137/80 01/02/20 09:02 36.8 C 103 H 20 98 01/02/20 08:57 96 H 100 01/02/20 08:52 94 H 100 01/02/20 08:50 101 H 145/89 H 01/02/20 08:47 100 H 100 01/02/20 08:42 110 H 100 01/02/20 08:37 102 H 100 01/02/20 08:35 101 H 142/88 H 01/02/20 08:32 91 H 100 01/02/20 08:30 20 01/02/20 08:27 86 99 01/02/20 08:22 97 H 100 01/02/20 08:21 88 138/83 01/02/20 08:17 88 100 01/02/20 08:12 88 100 01/02/20 08:07 84 100 01/02/20 08:06 92 H 116/69 01/02/20 08:03 92 H 78 L 01/02/20 08:02 85 100 01/02/20 07:57 82 100 01/02/20 07:52 91 H 100 01/02/20 07:50 86 116/60 01/02/20 07:47 88 100 01/02/20 07:42 81 100 01/02/20 07:37 86 100 01/02/20 07:32 89 100 01/02/20 07:27 78 100 01/02/20 07:22 86 100 01/02/20 07:19 37.0 C 93 H 20 136/76 01/02/20 07:17 84 100 01/02/20 07:13 97 H 140/83 01/02/20 07:12 95 H 100 01/02/20 07:08 97 H 142/86 H 01/02/20 07:07 95 H 100 01/02/20 07:04 94 H 139/86 01/02/20 07:02 84 100 01/02/20 07:00 16 01/02/20 06:58 96 H 135/85 01/02/20 06:57 92 H 100 01/02/20 06:54 92 H 136/86 01/02/20 06:52 98 H 100 01/02/20 06:49 103 H 16 138/85 01/02/20 06:47 103 H 100 01/02/20 06:44 83 16 138/83 01/02/20 06:42 83 99 01/02/20 06:39 18 01/02/20 06:38 87 139/85 01/02/20 06:37 80 98 01/02/20 06:34 102 H 16 137/92 01/02/20 06:32 103 H 100 01/02/20 06:29 100 H 150/83 H 01/02/20 06:28 18 01/02/20 06:27 99 H 98 01/02/20 06:23 98 H 16 134/86 01/02/20 06:22 103 H 98 01/02/20 06:17 112 H 16 130/80 98 01/02/20 06:14 96 H 16 145/83 H 01/02/20 06:12 103 H 18 137/80 98 01/02/20 06:11 108 H 141/88 H 01/02/20 06:10 18 01/02/20 06:08 102 H 16 128/68 01/02/20 06:07 98 H 98 01/02/20 06:06 92 H 138/70 01/02/20 06:05 107 H 18 144/80 H 01/02/20 06:02 99 H 98 01/02/20 06:01 94 H 155/95 H 01/02/20 06:00 36.5 C 18 01/02/20 05:57 104 H 99 01/02/20 05:52 93 H 99 01/02/20 05:47 96 H 99 01/02/20 04:38 92 H 141/101 H 01/02/20 04:09 86 164/108 H 01/02/20 03:00 36.6 C 01/02/20 01:20 86 150/103 H 01/02/20 00:51 36.8 C 86 20 150/103 H Transfer of Care Handoff Completed per policy Notes Mental Status: alert / awake / arousable Patient Amnestic to Procedure: Yes Nausea / Vomiting: adequately controlled Pain: adequately controlled Airway Patency, RR, SpO2: stable & adequate BP & HR: stable & adequate Hydration State: stable & adequate Anesthetic Complications: no major complications apparent
[2020-01-02] MEDS ORDERED: OXYTOCIN 30 UNITS in LACTATED RINGER'S 1,000 ML IV SCH (19:15)
[2020-01-02] MEDS: DOCUSATE SODIUM 100 MG CAP PO SCH (20:48)
[2020-01-02] MEDS: SIMETHICONE 80 MG CHEW PO SCH (20:48)
[2020-01-03] MEDS ORDERED: COUGH DROP (SUGAR FREE) LOZ 24 LOZ/1 BOX BUCCAL ONE (07:37)
[2020-01-03] MEDS: AMPHETAMINE ASP/SULF/DEXTRAMPH 10 MG TAB PO SCH (07:56)
--- NOTE | 2020-01-03 08:47 | Obstetrical Progress Note ---
Date of Service January 03, 2020 Assessment & Plan (1) : POD#1 doing well. manager steel is coming to see patient today. Continue to ambulate, PO hydration. Continue routine postop care. Subjective Ambulation: ambulating normally Voiding: no voiding problems Diet Tolerance:: regular diet Lochia:: Moderate POD#1. Is feeling ok. Feels like pain is adequately controlled with pain meds. Review of Systems All systems reviewed & are unremarkable except as noted in HPI & below Physical Exam Constitutional WD/WN, vitals as above no acute distress Respiratory normal respiratory effort Cardiovascular Rate/Rhythm: regular rate and regular rhythm Gastrointestinal (Abdomen) Inspection/Auscultation: abdomen normal to inspection; abdomen not distended Percussion/Palpation: abdomen soft Genitourinary OB Exam Abdomen: + fundal height Fundus: + firm; not tender Results & Data Vital Signs (Past 12 Hours) Vital Signs Temp Pulse Pulse Resp BP BP Pulse Ox 01/03/20 06:30 18 96 01/03/20 04:30 18 94 01/03/20 03:30 18 93 01/03/20 02:24 18 97 01/03/20 01:09 18 99 01/03/20 00:30 18 100 01/02/20 23:35 36.8 C 79 18 133/84 100 01/02/20 22:15 18 100 01/02/20 21:55 36.7 C 88 18 144/84 H 99 01/02/20 21:15 36.8 C 87 20 149/78 H 100 01/02/20 20:53 36.8 C 18 01/02/20 20:47 85 149/78 H
[2020-01-03] MEDS: NICOTINE 14 MG/24 HR PATCH TD SCH (09:00)
[2020-01-03] MEDS: PRENATAL VITAMIN 1 TAB PO SCH (09:00)
[2020-01-03] MEDS: DOCUSATE SODIUM 100 MG CAP PO SCH ×2 (09:00→20:25)
[2020-01-03] MEDS: FERROUS SULFATE 325 MG TAB PO SCH (09:00)
[2020-01-03] MEDS ORDERED: PRENATAL VITAMIN 1 TAB PO SCH (09:00)
[2020-01-03] MEDS: SIMETHICONE 80 MG CHEW PO SCH ×4 (09:00→20:25)
[2020-01-03 09:07] LABS: Basophils # (auto) 0.01 K/uL (0-0.2); Basophils % (auto) 0.1 %; Eosinophils # (auto) 0.06 K/uL (0-0.5); Eosinophils % (auto) 0.4 %; Hematocrit (blood only) 36.4 % (37-47); Hemoglobin 12.4 g/dL (12.0-16.0); Immature Granulocytes # (auto) 0.05 K/uL (0.00-0.02); Immature Granulocytes % (auto) 0.3 %; Lymphocytes # (auto) 2.24 K/uL (1.2-3.4); Lymphocytes % (auto) 15.2 %; Mean Corpuscular Hemoglobin 31.9 pg (25-34); Mean Corpuscular Hgb Conc 34.1 g/dL (32-36); Mean Corpuscular Volume 93.6 fL (80-100); Mean Platelet Volume 11.2 fL (7.4-10.4); Monocytes # (auto) 0.94 K/uL (0.11-0.59); Monocytes % (auto) 6.4 %; Neutrophils # (auto) 11.41 K/uL (1.4-6.5); Neutrophils % (auto) 77.6 %; Platelet Count 103 K/uL (130-400); RDW Coefficient of Variation 14.1 % (11.5-14.5); RDW Standard Deviation 48.1 fL (36.4-46.3); Red Blood Count 3.89 M/uL (4.2-5.4); White Blood Count 14.71 K/uL (4.8-10.8)
[2020-01-03] MEDS: IBUPROFEN 600 MG TAB PO PRN ×3 (10:39→20:25)
[2020-01-03] MEDS: OXYCODONE/ACETAMINOPHEN 5mg/325mg TAB PO PRN ×3 (10:40→21:52)
--- NOTE | 2020-01-03 11:07 | Anesthesiology Progress Note ---
Date of Service January 03, 2020 Anesthesia Post Procedure Vital Signs Vital Signs: Temp Pulse Pulse Resp BP BP Pulse Ox 01/03/20 10:40 16 95 01/03/20 10:11 16 97 01/03/20 09:30 17 96 01/03/20 08:30 17 94 01/03/20 07:30 37.0 C 94 H 17 117/70 97 01/03/20 06:30 18 96 01/03/20 04:30 18 94 01/03/20 03:30 18 93 01/03/20 02:24 18 97 01/03/20 01:09 18 99 01/03/20 00:30 18 100 01/02/20 23:35 36.8 C 79 18 133/84 100 01/02/20 22:15 18 100 01/02/20 21:55 36.7 C 88 18 144/84 H 99 01/02/20 21:15 36.8 C 87 20 149/78 H 100 01/02/20 20:53 36.8 C 18 01/02/20 20:47 85 149/78 H 01/02/20 20:43 92 H 99 01/02/20 20:39 88 144/86 H 01/02/20 20:38 87 98 01/02/20 20:33 89 99 01/02/20 20:29 86 135/77 01/02/20 20:28 89 98 01/02/20 20:23 87 99 01/02/20 20:19 94 H 145/83 H 01/02/20 20:18 94 H 98 01/02/20 20:14 100 H 93 01/02/20 20:13 102 H 93 01/02/20 20:09 89 137/77 01/02/20 20:08 87 97 01/02/20 20:03 90 99 01/02/20 19:59 140/81 01/02/20 19:58 86 100 01/02/20 19:53 83 100 01/02/20 19:52 36.6 C 20 01/02/20 19:49 83 141/82 H 01/02/20 19:48 88 98 01/02/20 19:43 92 H 100 01/02/20 19:39 88 139/74 01/02/20 19:38 91 H 100 01/02/20 19:33 96 H 100 01/02/20 19:29 89 138/76 01/02/20 19:28 86 100 01/02/20 19:23 36.6 C 84 18 99 01/02/20 19:20 92 H 135/60 01/02/20 19:18 88 99 01/02/20 19:13 94 H 99 01/02/20 19:09 96 H 128/76 01/02/20 19:08 96 H 100 01/02/20 19:03 90 100 01/02/20 18:59 87 124/76 01/02/20 18:58 94 H 100 01/02/20 18:53 37.0 C 92 H 20 135/60 99 01/02/20 18:49 88 126/76 01/02/20 18:48 92 H 95 01/02/20 18:43 95 H 16 122/66 100 01/02/20 18:39 95 H 122/66 01/02/20 18:38 91 H 100 01/02/20 18:33 95 H 20 100 01/02/20 18:29 92 H 113/58 L 01/02/20 18:28 90 100 01/02/20 18:25 94 H 20 100 01/02/20 18:23 94 H 100 01/02/20 18:19 96 H 114/55 L 01/02/20 18:18 92 H 100 01/02/20 18:13 88 16 120/60 100 01/02/20 18:09 120/60 01/02/20 18:08 94 H 100 01/02/20 18:04 99 H 134/56 L 01/02/20 18:03 99 H 20 120/60 100 01/02/20 18:02 157 H 169/131 H 01/02/20 17:58 102 H 85 L 01/02/20 17:53 37.0 C 98 H 20 115/54 L 100 01/02/20 17:48 99 H 100 01/02/20 16:42 94 H 97 01/02/20 16:37 98 H 97 01/02/20 16:35 90 137/88 01/02/20 16:32 94 H 98 01/02/20 16:27 97 H 98 01/02/20 16:22 96 H 100 01/02/20 16:20 100 H 133/90 03/14/20 16:17 89 100 20 16:12 89 96 20 16:07 106 H 98 20 16:06 96 H 141/90 H 20 16:02 102 H 99 20 15:57 104 H 99 20 15:52 113 H 98 20 15:50 106 H 142/95 H 1420 15:47 106 H 99 20 15:42 108 H 100 20 15:37 101 H 98 20 15:36 100 H 138/81 1420 15:32 92 H 96 1420 15:27 92 H 100 20 15:22 95 H 99 20 15:20 90 136/81 20 15:17 108 H 99 20 15:12 100 H 99 20 15:07 90 99 01/02/20 15:06 37.0 C 88 16 140/85 01/02/20 15:02 85 97 01/02/20 14:57 95 H 96 01/02/20 14:52 84 95 20 14:51 83 132/75 20 14:47 86 96 20 14:42 90 95 20 14:37 87 97 1420 14:35 86 132/72 1420 14:32 85 95 20 14:27 88 95 20 14:22 83 96 1420 14:20 90 132/74 1420 14:17 90 97 1420 14:12 87 95 1420 14:07 90 96 1420 14:06 83 140/76 1420 14:02 87 95 1420 13:57 87 95 1420 13:52 92 H 96 1420 13:50 103 H 119/74 1420 13:47 93 H 96 1420 13:42 87 95 1420 13:37 94 H 98 1420 13:35 110 H 127/79 1420 13:32 87 94 14/20 13:27 91 H 94 03/14/20 13:22 100 H 95 01/02/20 13:21 92 H 133/83 01/02/20 13:17 91 H 94 01/02/20 13:12 86 97 01/02/20 13:07 86 95 01/02/20 13:06 93 H 143/83 H 01/02/20 13:02 95 H 99 01/02/20 13:00 36.8 C 20 01/02/20 12:57 96 H 99 01/02/20 12:52 98 H 99 01/02/20 12:50 101 H 146/76 H 01/02/20 12:47 99 H 99 01/02/20 12:42 97 H 100 01/02/20 12:37 97 H 99 01/02/20 12:35 93 H 146/85 H 01/02/20 12:32 102 H 99 01/02/20 12:27 117 H 99 01/02/20 12:22 101 H 100 01/02/20 12:21 90 153/91 H 01/02/20 12:17 106 H 99 01/02/20 12:12 96 H 98 01/02/20 12:07 92 H 99 01/02/20 12:05 102 H 140/96 01/02/20 12:02 100 H 98 01/02/20 11:57 117 H 97 01/02/20 11:52 99 H 99 01/02/20 11:50 104 H 130/71 01/02/20 11:47 97 H 100 01/02/20 11:42 104 H 98 01/02/20 11:37 108 H 100 01/02/20 11:35 108 H 142/89 H 01/02/20 11:32 111 H 100 01/02/20 11:27 98 H 92 01/02/20 11:22 108 H 100 01/02/20 11:20 116 H 139/97 01/02/20 11:17 108 H 100 01/02/20 11:13 116 H 89 L 01/02/20 11:12 104 H 93 Pulse Ox 01/03/20 10:40 01/03/20 10:11 01/03/20 09:30 01/03/20 08:30 01/03/20 07:30 97 01/03/20 06:30 01/03/20 04:30 01/03/20 03:30 01/03/20 02:24 01/03/20 01:09 01/03/20 00:30 01/02/20 23:35 01/02/20 22:15 01/02/20 21:55 01/02/20 21:15 01/02/20 20:53 01/02/20 20:47 01/02/20 20:43 01/02/20 20:39 01/02/20 20:38 01/02/20 20:33 01/02/20 20:29 01/02/20 20:28 01/02/20 20:23 01/02/20 20:19 01/02/20 20:18 01/02/20 20:14 01/02/20 20:13 01/02/20 20:09 01/02/20 20:08 01/02/20 20:03 01/02/20 19:59 01/02/20 19:58 01/02/20 19:53 01/02/20 19:52 01/02/20 19:49 01/02/20 19:48 01/02/20 19:43 01/02/20 19:39 01/02/20 19:38 01/02/20 19:33 01/02/20 19:29 01/02/20 19:28 01/02/20 19:23 01/02/20 19:20 01/02/20 19:18 01/02/20 19:13 01/02/20 19:09 01/02/20 19:08 01/02/20 19:03 01/02/20 18:59 01/02/20 18:58 01/02/20 18:53 01/02/20 18:49 01/02/20 18:48 01/02/20 18:43 01/02/20 18:39 01/02/20 18:38 01/02/20 18:33 01/02/20 18:29 01/02/20 18:28 01/02/20 18:25 01/02/20 18:23 01/02/20 18:19 01/02/20 18:18 01/02/20 18:13 01/02/20 18:09 01/02/20 18:08 01/02/20 18:04 01/02/20 18:03 01/02/20 18:02 01/02/20 17:58 01/02/20 17:53 01/02/20 17:48 01/02/20 16:42 01/02/20 16:37 01/02/20 16:35 01/02/20 16:32 01/02/20 16:27 01/02/20 16:22 01/02/20 16:20 01/02/20 16:17 01/02/20 16:12 01/02/20 16:07 01/02/20 16:06 01/02/20 16:02 01/02/20 15:57 01/02/20 15:52 01/02/20 15:50 01/02/20 15:47 01/02/20 15:42 01/02/20 15:37 01/02/20 15:36 01/02/20 15:32 01/02/20 15:27 01/02/20 15:22 01/02/20 15:20 01/02/20 15:17 01/02/20 15:12 01/02/20 15:07 01/02/20 15:06 01/02/20 15:02 01/02/20 14:57 01/02/20 14:52 01/02/20 14:51 01/02/20 14:47 01/02/20 14:42 01/02/20 14:37 01/02/20 14:35 01/02/20 14:32 01/02/20 14:27 01/02/20 14:22 01/02/20 14:20 01/02/20 14:17 01/02/20 14:12 01/02/20 14:07 01/02/20 14:06 01/02/20 14:02 01/02/20 13:57 01/02/20 13:52 01/02/20 13:50 01/02/20 13:47 01/02/20 13:42 01/02/20 13:37 01/02/20 13:35 01/02/20 13:32 01/02/20 13:27 01/02/20 13:22 01/02/20 13:21 01/02/20 13:17 01/02/20 13:12 01/02/20 13:07 01/02/20 13:06 01/02/20 13:02 01/02/20 13:00 01/02/20 12:57 01/02/20 12:52 01/02/20 12:50 01/02/20 12:47 01/02/20 12:42 01/02/20 12:37 01/02/20 12:35 01/02/20 12:32 01/02/20 12:27 01/02/20 12:22 01/02/20 12:21 01/02/20 12:17 01/02/20 12:12 01/02/20 12:07 01/02/20 12:05 01/02/20 12:02 01/02/20 11:57 01/02/20 11:52 01/02/20 11:50 01/02/20 11:47 01/02/20 11:42 01/02/20 11:37 01/02/20 11:35 01/02/20 11:32 01/02/20 11:27 01/02/20 11:22 01/02/20 11:20 01/02/20 11:17 01/02/20 11:13 01/02/20 11:12 Pain Intensity Bilateral Lower Abdomen: Pain Intensity: 5 Transfer of Care Handoff Completed per policy Notes Mental Status: alert / awake / arousable Patient Amnestic to Procedure: Yes Nausea / Vomiting: adequately controlled Pain: adequately controlled Airway Patency, RR, SpO2: stable & adequate BP & HR: stable & adequate Hydration State: stable & adequate Neuraxial Anesthesia: was administered and sensory block resolved Anesthetic Complications: no major complications apparent and Pt Satisfied with anesthetic care
[2020-01-03] MEDS ORDERED: ONDANSETRON INJ 2 MG/ML 2 ML VIAL IV PRN (11:24)
[2020-01-03] MEDS ORDERED: DiphenhydrAMINE HCL 50 MG/ML VIAL IV PRN (11:24)
[2020-01-03] MEDS ORDERED: PROMETHAZINE HCL 25 MG in SODIUM CHLORIDE 0.9% 50 ML IV PRN (11:24)
[2020-01-03] MEDS ORDERED: KETOROLAC 30 MG/ML VIAL IV PRN (11:24)
[2020-01-03] MEDS ORDERED: AMPHETAMINE ASP/SULF/DEXTRAMPH 10 MG TAB PO ONE (19:45)
[2020-01-03] MEDS ORDERED: bisacodyL 5 MG TABEC PO SCH (20:00)
[2020-01-04] MEDS: OXYCODONE/ACETAMINOPHEN 5mg/325mg TAB PO PRN ×5 (02:49→21:05)
[2020-01-04] MEDS: IBUPROFEN 600 MG TAB PO PRN ×5 (02:50→21:03)
[2020-01-04] MEDS ORDERED: bisacodyL 10 MG SUPP PR PRN (06:00)
[2020-01-04] MEDS: AMPHETAMINE ASP/SULF/DEXTRAMPH 10 MG TAB PO SCH ×2 (07:45→14:05)
[2020-01-04] MEDS: NICOTINE 7 MG/24 HR TDSY TD SCH (07:46)
[2020-01-04] MEDS ORDERED: ALPRAZolam 0.5 MG TABLET PO STA (07:53)
[2020-01-04] MEDS: DOCUSATE SODIUM 100 MG CAP PO SCH ×2 (08:31→21:03)
[2020-01-04] MEDS: FERROUS SULFATE 325 MG TAB PO SCH (08:31)
[2020-01-04] MEDS: SIMETHICONE 80 MG CHEW PO SCH ×4 (08:31→21:03)
--- NOTE | 2020-01-04 08:44 | Obstetrical Progress Note ---
Date of Service January 04, 2020 Assessment & Plan (1) : POD#2. See HPI. She also requested STI testing, as her partner (FOB) Jarod has had other partners. I ordered GC/C via urine, and Hep B and C, HIV and RPR by blood. Subjective Ambulation: ambulating normally Voiding: no voiding problems Diet Tolerance:: regular diet Lochia:: Moderate Feeding Type:: breast feeding POD#2. Medically stable. Is very agitated, as she feels that she has had garbage in her room during her whole stay. She also, about 2 hours after I performed morning rounds, became upset that she has not been able to pay her rent. She got dressed and ambulated in the hallways with her envelope of polo in her hand wanting to leave and take a cab to her landlord's office to pay. I discussed with her that I do not recommend that she leave, and in my medical opinion it is not safe for her to do this. If she wants to leave the hospital at this time to travel alone in a cab, she would need to leave against medical advice. Behavioral health unit nurse was called to help with the above scenario and to help diffuse patient's agitation, and she spoke with patient, which definitely had a calming effect. Patient requested her nicotine patch and xanax. Review of Systems All systems reviewed & are unremarkable except as noted in HPI & below Physical Exam Incision CDI Constitutional WD/WN, vitals as above no acute distress Respiratory normal respiratory effort Cardiovascular Rate/Rhythm: regular rate and regular rhythm Gastrointestinal (Abdomen) Inspection/Auscultation: abdomen normal to inspection; abdomen not distended Percussion/Palpation: abdomen soft Genitourinary OB Exam Abdomen: + fundal height Fundus: + firm; not tender Results & Data Vital Signs (Past 12 Hours) Vital Signs Temp Pulse Resp BP 01/04/20 01:07 36.9 C 102 H 18 142/88 H 01/03/20 20:45 36.6 C 120 H 18 139/89
[2020-01-04 09:26] LABS: Hematocrit (blood only) 34.7 % (37-47); Hemoglobin 11.7 g/dL (12.0-16.0)
[2020-01-04] MEDS: NICOTINE 14 MG/24 HR PATCH TD SCH (09:47)
[2020-01-04] MEDS: PRENATAL VITAMIN 1 TAB PO SCH (09:48)
[2020-01-04 10:04] LABS: Hepatitis B Surface Antigen Neg (Neg)
[2020-01-04 10:33] LABS: Hepatitis C IgG 13Yrs+Old_Rflx Neg (Neg)
[2020-01-04] MEDS: ALPRAZolam 0.5 MG TABLET PO PRN (17:00)
[2020-01-04] MEDS: LURASIDONE HCL 40 MG TAB PO PRN (21:03)
[2020-01-04] MEDS ORDERED: COUGH DROP (SUGAR FREE) LOZ 24 LOZ/1 BOX BUCCAL ONE ×2 (23:46→23:47)
[2020-01-05] MEDS: IBUPROFEN 600 MG TAB PO PRN ×5 (00:03→23:25)
[2020-01-05] MEDS: OXYCODONE/ACETAMINOPHEN 5mg/325mg TAB PO PRN ×5 (00:04→23:25)
[2020-01-05 03:50] LABS: Amphetamine Urine, Confirm 2640 ng/mL (<250); Marijuana Quant, GCMS Urine 19 ng/mL (<5); Methamphetamine, Ur Confirm NEGATIVE ng/mL (<250)
[2020-01-05] MEDS: ALPRAZolam 0.5 MG TABLET PO PRN ×3 (04:09→21:19)
--- NOTE | 2020-01-05 06:28 | Obstetrical Progress Note ---
Date of Service <Renuka Smith DO - Last Filed: 01/05/20 06:40> January 05, 2020 Assessment & Plan <Renuka Smith DO - Last Filed: 01/05/20 06:40> (1) Encounter for care and examination after delivery: - Patient is doing well medically. - Pt is psychiatrically complex and will have a meeting with CYS, her mental health caseworker, her mother, and her hospital providers regarding her disposition home and her baby's disposition. - Following discharge will require follow up. - Psych is consulted and aware of this patient. Subjective <Renuka Smith DO - Last Filed: 01/05/20 06:40> 34 yo ; POD # 3 following section delivery at 38.4 weeks; doing well this AM; no abdominal cramping/pain; voiding well, passing gas but no BM; tolerating meals overnight, able to ambulate some within the room. No complaints this AM. Review of Systems Constitutional: denies fever, chills, sweats, headache Respiratory: denies SOB, difficulty breathing Cardiac: denies CP, chest palpitations, chest pressure Breast: denies breast pain : denies dysuria Physical Exam <Renuka Smith DO - Last Filed: 01/05/20 06:40> General: patient is alert and oriented, in NAD Cardiac: +S1/S2, no murmurs rubs or gallops Respiratory: lungs CTA b/l, anteriorly and posteriorly, no wheezes rales or rhonchi, no increased work of breathing, symmetric chest rise, no respiratory distress Abdomen: soft, NT, +bowel sounds Uterus: uterine fundus firm, palpable below the level of the umbilicus. Incision intact, non-tender, non-erythematous, no weeping from incision site Lower Extremities: no LE edema or swelling, no deep calf pain, Dunia's sign negative b/l Results & Data <DO Valeria Luna Last Filed: 01/05/20 06:40> Vital Signs (Past 12 Hours) Vital Signs Temp Pulse Resp BP Pulse Ox 01/04/20 23:40 37.0 C 99 H 18 135/85 99 Laboratory Results Laboratory Results - last 24 hr 01/02/20 01/04/20 01/04/20 00:53 09:07 09:07 Hgb 11.7 L Hct 34.7 L U Amphetamines Confirm 2640 H U Methamphetamin Confrm NEGATIVE U Marijuana THC Carboxy 19 H Drug Screen Comment SEE NOTE RPR Hep Bs Antigen Hepatitis C Antibody HIV 1&2 Ab/P24 Ag 4thGn Blood Type A Negative Antibody Screen Cancelled Screen Negative 01/04/20 01/04/20 01/04/20 09:07 09:07 09:07 Hgb Hct U Amphetamines Confirm U Methamphetamin Confrm U Marijuana THC Carboxy Drug Screen Comment RPR Nonreactive Hep Bs Antigen Neg Hepatitis C Antibody Neg HIV 1&2 Ab/P24 Ag 4thGn Neg Blood Type Antibody Screen Screen Medications Administered Current Medications Alprazolam (Xanax) 0.5 mg PO Q8H PRN PRN Reason: Agitation Stop: 02/03/20 12:55 Last Admin: 01/05/20 04:09 Dose: 0.5 mg Documented by: Amphetamine/Dextroamphetamine (Adderall) 10 mg PO BID@0800,1400 [facility] Stop: 01/17/20 07:59 Last Admin: 01/04/20 14:05 Dose: 10 mg Documented by: Benzocaine (Dermoplast Pain Relieving [place]) 1 appln EXT UD PRN PRN Reason: use on skin as needed Stop: 02/01/20 18:19 Calcium Carbonate (Tums) 500 mg PO Q4H PRN PRN Reason: Indigestion Stop: 02/01/20 01:46 Last Admin: 01/02/20 08:35 Dose: 500 mg Documented by: Cocaine HCl (Supercream 0.870%) 1 gm EXT UD PRN PRN Reason: hemmorrhoidal inflammation Stop: 01/16/20 18:19 Diphenhydramine HCl (Benadryl Capsule) 25 mg PO QID PRN PRN Reason: Itching Stop: 02/02/20 11:23 Diphenhydramine HCl (Benadryl) 25 mg IV QID PRN PRN Reason: Itching Stop: 02/02/20 11:23 Docusate Sodium (Colace) 100 mg PO DAILY@, [facility] Stop: 02/01/20 20:59 Last Admin: 01/04/20 21:03 Dose: 100 mg Documented by: Ferrous Sulfate (Feosol) 325 mg PO DAILY@08 [facility] Stop: 02/02/20 07:59 Last Admin: 01/04/20 08:31 Dose: 325 mg Documented by: Hydrocortisone (Anusol Hc) 25 mg NV BID PRN PRN Reason: Hemorrhoids Stop: 02/01/20 18:19 Lactated Ringer's (Lr) 1,000 mls @ 125 mls/hr IV .Q8H [facility] Stop: 02/01/20 18:19 Last Admin: 01/03/20 05:15 Dose: 125 mls/hr Documented by: Oxytocin 30 units/ Lactated (Ringer's) 1,003 mls @ 125 mls/hr IV .Q8H2M [facility] Stop: 02/01/20 19:14 Last Infusion: 01/03/20 05:15 Dose: Infused Documented by: Promethazine HCl 25 mg/ Sodium (Chloride) 51 mls @ 204 mls/hr IV Q4H PRN PRN Reason: Nausea And Vomiting Stop: 02/02/20 11:23 Ibuprofen (Motrin) 600 mg PO Q4H PRN PRN Reason: Pain Stop: 02/01/20 18:19 Last Admin: 01/05/20 06:35 Dose: 600 mg Documented by: Ketorolac Tromethamine (Toradol) 30 mg IV Q6H PRN PRN Reason: Pain Stop: 01/08/20 11:23 Lurasidone HCl (Latuda) 40 mg PO DAILY PRN PRN Reason: Anxiety Stop: 02/01/20 02:55 Last Admin: 01/04/20 21:03 Dose: 40 mg Documented by: Magnesium Hydroxide (Milk Of Magnesia) 30 ml PO HS PRN PRN Reason: Constipation Stop: 02/01/20 18:19 Last Admin: 01/04/20 02:50 Dose: 30 ml Documented by: Miscellaneous (Remove Nicoderm Patch) 1 ea N/A DAILY@0859 [facility] Stop: 02/03/20 08:58 Last Admin: 01/04/20 09:47 Dose: 1 ea Documented by: Nicotine (Nicoderm Cq) 14 mg TD QAM [facility] Stop: 02/02/20 08:59 Last Admin: 01/04/20 09:47 Dose: 14 mg Documented by: Ondansetron HCl (Zofran) 4 mg IV Q4H PRN PRN Reason: Nausea And Vomiting Stop: 02/02/20 11:23 Oxycodone/Acetaminophen (Percocet 5mg/325mg) 1 - 2 tab PO Q4H PRN PRN Reason: Pain Stop: 01/17/20 11:23 Last Admin: 01/05/20 06:35 Dose: 1 tab Documented by: Jorge Multivit/[place]/Iron/Folic Ac ( Vitamin) 1 tab PO DAILY@08 [facility] Stop: 02/02/20 07:59 Last Admin: 01/04/20 09:48 Dose: 1 tab Documented by: Sennosides (Senokot) 17.2 mg PO HS PRN PRN Reason: Constipation Stop: 02/01/20 18:19 Simethicone (Mylicon) 80 mg PO DAILY@08,,, [facility] Stop: 02/01/20 20:59 Last Admin: 01/04/20 21:03 Dose: 80 mg Documented by: <Ludivina Cole MD - Last Filed: 01/05/20 07:45> Co-Signing Physician Notes At request of the patient's nursing team, to avoid upsetting the patient in advance of the planned separation of mother and baby this morning, I have limited myself to chart review in and discussion with RN and Resident DO providers regarding her exam findings this morning. Physically her recovery has gone well and her incision is c/d/i with a firm fundus below the umbilicus and appropriate lochia. Psychiatrically, the plan has been and continues to be that a team of psych and CYS and security will be assembled and ready for the meeting at 9am where patient will be advised of the decision to place the baby in foster care. Discharge of the patient to home vs to acute psych care is pending the outcome of this discussion. Resident Activity Tracking <Renuka Smith DO - Last Filed: 01/05/20 06:40> Resident Involvement: Resident Care Provided Care Provided: OB Delivery
[2020-01-05] MEDS: PRENATAL VITAMIN 1 TAB PO SCH (08:15)
[2020-01-05] MEDS: FERROUS SULFATE 325 MG TAB PO SCH (08:15)
[2020-01-05] MEDS: SIMETHICONE 80 MG CHEW PO SCH ×4 (08:15→21:19)
[2020-01-05] MEDS: DOCUSATE SODIUM 100 MG CAP PO SCH ×2 (08:15→21:19)
[2020-01-05] MEDS: NICOTINE 14 MG/24 HR PATCH TD SCH (08:15)
[2020-01-05] MEDS ORDERED: Nursing to Pharmacy Communication ONE (13:42)
[2020-01-05] MEDS: AMPHETAMINE ASP/SULF/DEXTRAMPH 10 MG TAB PO SCH (17:03)
[2020-01-05] MEDS: LURASIDONE HCL 40 MG TAB PO PRN (21:19)
[2020-01-06] MEDS: IBUPROFEN 600 MG TAB PO PRN ×4 (06:00→23:56)
[2020-01-06] MEDS: OXYCODONE/ACETAMINOPHEN 5mg/325mg TAB PO PRN ×4 (06:00→23:54)
--- NOTE | 2020-01-06 06:47 | Obstetrical Progress Note ---
Date of Service <Renuka Smith - Last Filed: 01/06/20 06:47> January 06, 2020 Assessment & Plan <Renuka Smith - Last Filed: 01/06/20 06:47> (1) Encounter for care and examination after delivery: 34 yo POD#4 for repeat C section. - Patient is doing well medically. - Pt is psychiatrically complex and will have a meeting with CYS, her mental health egg caser, her mother, and her hospital providers regarding her disposi tion home and her baby's disposition on . - Following discharge will require follow up. - In-house psychiatry is aware of this patient. Subjective <Renuka Hartjuanita - Last Filed: 01/06/20 06:47> 34 yo ; POD # 4 following section delivery at 38.4 weeks; doing well this AM; no abdominal cramping/pain; voiding well, has had a BM; tolerating meals overnight, able to ambulate some within the room. Baby is being bottle fed however patient reports she is" feeling her milk come in" which is un comfortable. She is using cabbage leaves put in the refrigerator to alleviate that discomfort. She does not have a sports bra with her. Review of Systems Constitutional: denies fever, chills, sweats, headache Respiratory: denies SOB, difficulty breathing Cardiac: denies CP, chest palpitations, chest pressure Breast: denies breast pain : denies dysuria Physical Exam <Renuka Smith - Last Filed: 01/06/20 06:47> General: patient is alert and oriented, in NAD Cardiac: +S1/S2, no murmurs rubs or gallops Respiratory: lungs CTA b/l, anteriorly and posteriorly, no wheezes rales or rhonchi, no increased work of breathing, symmetric chest rise, no respiratory distress Abdomen: soft, NT, +bowel sounds Uterus: uterine fundus firm, palpable below the level of the umbilicus. Incision intact, non-tender, non-erythematous, no weeping from incision site Lower Extremities: no LE edema or swelling, no deep calf pain, Dunia's sign negative b/l Results & Data <Renuka Smith DO - Last Filed: 01/06/20 06:47> Vital Signs (Past 12 Hours) Vital Signs Temp Pulse Resp BP Pulse Ox 01/05/20 23:25 36.5 C 106 H 18 121/87 98 Laboratory Results Laboratory Results - last 24 hr 01/05/20 Unknown C.trachomatis RNA Pending N.gonorrhoeae RNA Pending Reference Lab Comment Pending Medications Administered Current Medications Alprazolam (Xanax) 0.5 mg PO Q8H PRN PRN Reason: Agitation Stop: 02/03/20 12:55 Last Admin: 01/05/20 21:19 Dose: 0.5 mg Documented by: Amphetamine/Dextroamphetamine (Adderall) 10 mg PO BID@0800,1600 [facility] Stop: 01/19/20 15:59 Last Admin: 01/05/20 17:03 Dose: 10 mg Documented by: Benzocaine (Dermoplast Pain Relieving [place]) 1 appln EXT UD PRN PRN Reason: use on skin as needed Stop: 02/01/20 18:19 Calcium Carbonate (Tums) 500 mg PO Q4H PRN PRN Reason: Indigestion Stop: 02/01/20 01:46 Last Admin: 01/02/20 08:35 Dose: 500 mg Documented by: Cocaine HCl (Supercream 0.870%) 1 gm EXT UD PRN PRN Reason: hemmorrhoidal inflammation Stop: 01/16/20 18:19 Diphenhydramine HCl (Benadryl Capsule) 25 mg PO QID PRN PRN Reason: Itching Stop: 02/02/20 11:23 Diphenhydramine HCl (Benadryl) 25 mg IV QID PRN PRN Reason: Itching Stop: 02/02/20 11:23 Docusate Sodium (Colace) 100 mg PO DAILY@08,21 [facility] Stop: 02/01/20 20:59 Last Admin: 01/05/20 21:19 Dose: Not Given Documented by: Ferrous Sulfate (Feosol) 325 mg PO DAILY@08 [facility] Stop: 02/02/20 07:59 Last Admin: 01/05/20 08:15 Dose: 325 mg Documented by: Hydrocortisone (Anusol Hc) 25 mg NE BID PRN PRN Reason: Hemorrhoids Stop: 02/01/20 18:19 Lactated Ringer's (Lr) 1,000 mls @ 125 mls/hr IV .Q8H [facility] Stop: 02/01/20 18:19 Last Admin: 01/03/20 05:15 Dose: 125 mls/hr Documented by: Oxytocin 30 units/ Lactated (Ringer's) 1,003 mls @ 125 mls/hr IV .Q8H2M [facility] Stop: 02/01/20 19:14 Last Infusion: 01/03/20 05:15 Dose: Infused Documented by: Promethazine HCl 25 mg/ Sodium (Chloride) 51 mls @ 204 mls/hr IV Q4H PRN PRN Reason: Nausea And Vomiting Stop: 02/02/20 11:23 Ibuprofen (Motrin) 600 mg PO Q4H PRN PRN Reason: Pain Stop: 02/01/20 18:19 Last Admin: 01/06/20 06:00 Dose: 600 mg Documented by: Ketorolac Tromethamine (Toradol) 30 mg IV Q6H PRN PRN Reason: Pain Stop: 01/08/20 11:23 Lurasidone HCl (Latuda) 40 mg PO DAILY PRN PRN Reason: Anxiety Stop: 02/01/20 02:55 Last Admin: 01/05/20 21:19 Dose: 40 mg Documented by: Magnesium Hydroxide (Milk Of Magnesia) 30 ml PO HS PRN PRN Reason: Constipation Stop: 02/01/20 18:19 Last Admin: 01/04/20 02:50 Dose: 30 ml Documented by: Miscellaneous (Remove Nicoderm Patch) 1 ea N/A DAILY@0859 [facility] Stop: 02/03/20 08:58 Last Admin: 01/05/20 08:40 Dose: Not Given Documented by: Nicotine (Nicoderm Cq) 14 mg TD QAM [facility] Stop: 02/02/20 08:59 Last Admin: 01/05/20 08:15 Dose: 14 mg Documented by: Ondansetron HCl (Zofran) 4 mg IV Q4H PRN PRN Reason: Nausea And Vomiting Stop: 02/02/20 11:23 Oxycodone/Acetaminophen (Percocet 5mg/325mg) 1 - 2 tab PO Q4H PRN PRN Reason: Pain Stop: 01/17/20 11:23 Last Admin: 01/06/20 06:00 Dose: 1 tab Documented by: Prenat Multivit/[place]/Iron/Folic Ac ( Vitamin) 1 tab PO DAILY@08 [facility] Stop: 02/02/20 07:59 Last Admin: 01/05/20 08:15 Dose: 1 tab Documented by: Sennosides (Senokot) 17.2 mg PO HS PRN PRN Reason: Constipation Stop: 02/01/20 18:19 Simethicone (Mylicon) 80 mg PO DAILY@08,13,17,21 [facility] Stop: 02/01/20 20:59 Last Admin: 01/05/20 21:19 Dose: Not Given Documented by: <Chris Uribe Jr, MD, FACOG - Last Filed: 01/06/20 06:50> Co-Signing Physician Notes Resident Physician Supervision Note: I was present with Dr. Marie during the history and exam. I discussed the case with the resident and agree with the findings and plan as documented in the note. Any exceptions or clarifications are listed here: [None] Documented By: Chris Uribe Jr, MD, FACOG Resident Activity Tracking <Renuka Smith DO - Last Filed: 01/06/20 06:47> Resident Involvement: Resident Care Provided Care Provided: OB Delivery
[2020-01-06] MEDS: NICOTINE 14 MG/24 HR PATCH TD SCH (08:47)
[2020-01-06] MEDS: DOCUSATE SODIUM 100 MG CAP PO SCH ×2 (08:47→20:11)
[2020-01-06] MEDS: SIMETHICONE 80 MG CHEW PO SCH ×4 (08:47→20:11)
[2020-01-06] MEDS: AMPHETAMINE ASP/SULF/DEXTRAMPH 10 MG TAB PO SCH ×2 (08:47→15:28)
[2020-01-06] MEDS: FERROUS SULFATE 325 MG TAB PO SCH (08:47)
[2020-01-06] MEDS: PRENATAL VITAMIN 1 TAB PO SCH (08:47)
[2020-01-06 12:00] LABS: Chlamydia Trach RNA NOT DETECTED (NOT DETECTED); GC (Neis gonorrhoeae) RNA NOT DETECTED (NOT DETECTED)
[2020-01-06] MEDS: ALPRAZolam 0.5 MG TABLET PO PRN ×2 (12:31→20:11)
[2020-01-07] MEDS: IBUPROFEN 600 MG TAB PO PRN ×3 (04:43→12:32)
[2020-01-07] MEDS: ALPRAZolam 0.5 MG TABLET PO PRN (04:43)
[2020-01-07] MEDS: OXYCODONE/ACETAMINOPHEN 5mg/325mg TAB PO PRN ×3 (04:45→12:32)
--- NOTE | 2020-01-07 06:46 | Obstetrical Progress Note ---
Date of Service <Renuka Smith DO - Last Filed: 01/07/20 06:46> January 07, 2020 Assessment & Plan <Renuka Smith DO - Last Filed: 01/07/20 06:46> (1) Encounter for care and examination after delivery: 34 yo POD#5 for repeat C section. - Patient is doing well medically. - Pt is psychiatrically complex and will have a meeting with [facility], her mental health bilingual case manager, her mother, and her hospital providers regarding her disposi tion home and her baby's disposition today. - Following discharge will require follow up in [address] Roy. - In-house psychiatry is aware of this patient. Subjective <Renuka Smith - Last Filed: 01/07/20 06:46> 34 yo ; POD # 5 following section delivery at 38.4 weeks; doing well this AM; no abdominal cramping/pain; voiding well, has had a BM; tolerating meals overnight, able to ambulate some within the room. Feels that her abdomen feels much better today and she continues to use ice packs as needed. Review of Systems Constitutional: denies fever, chills, sweats, headache Respiratory: denies SOB, difficulty breathing Cardiac: denies CP, chest palpitations, chest pressure Breast: denies breast pain : denies dysuria Physical Exam <Renuka Smith DO - Last Filed: 01/07/20 06:46> General: patient is alert and oriented, in NAD Cardiac: +S1/S2, no murmurs rubs or gallops Respiratory: lungs CTA b/l, anteriorly and posteriorly, no wheezes rales or rhon chi, no increased work of breathing, symmetric chest rise, no respiratory distress Abdomen: soft, NT, +bowel sounds Uterus: uterine fundus firm, palpable below the level of the umbilicus. Incision intact, non-tender, non-erythematous, no weeping from incision site; no bruising Lower Extremities: no LE edema or swelling, no deep calf pain, Dunia's sign negative b/l Results & Data <Renuka Smith - Last Filed: 01/07/20 06:46> Vital Signs (Past 12 Hours) Vital Signs Temp Pulse Resp BP Pulse Ox 01/07/20 00:40 36.9 C 84 20 142/95 H 99 Laboratory Results Laboratory Results - last 24 hr 01/05/20 Unknown C.trachomatis RNA NOT DETECTED N.gonorrhoeae RNA NOT DETECTED Reference Lab Comment SEE NOTE Medications Administered Current Medications Alprazolam (Xanax) 0.5 mg PO Q8H PRN PRN Reason: Agitation Stop: 02/03/20 12:55 Last Admin: 01/07/20 04:43 Dose: 0.5 mg Documented by: Amphetamine/Dextroamphetamine (Adderall) 10 mg PO BID@0800,1600 [place] Stop: 01/19/20 15:59 Last Admin: 01/06/20 15:28 Dose: 10 mg Documented by: Benzocaine (Dermoplast Pain Relieving [place]) 1 appln EXT UD PRN PRN Reason: use on skin as needed Stop: 02/01/20 18:19 Calcium Carbonate (Tums) 500 mg PO Q4H PRN PRN Reason: Indigestion Stop: 02/01/20 01:46 Last Admin: 01/02/20 08:35 Dose: 500 mg Documented by: Cocaine HCl (Supercream 0.870%) 1 gm EXT UD PRN PRN Reason: hemmorrhoidal inflammation Stop: 01/16/20 18:19 Diphenhydramine HCl (Benadryl Capsule) 25 mg PO QID PRN PRN Reason: Itching Stop: 02/02/20 11:23 Diphenhydramine HCl (Benadryl) 25 mg IV QID PRN PRN Reason: Itching Stop: 02/02/20 11:23 Docusate Sodium (Colace) 100 mg PO DAILY@08,21 [place] Stop: 02/01/20 20:59 Last Admin: 01/06/20 20:11 Dose: 100 mg Documented by: Ferrous Sulfate (Feosol) 325 mg PO DAILY@08 [facility] Stop: 02/02/20 07:59 Last Admin: 01/06/20 08:47 Dose: 325 mg Documented by: Hydrocortisone (Anusol Hc) 25 mg TN BID PRN PRN Reason: Hemorrhoids Stop: 02/01/20 18:19 Lactated Ringer's (Lr) 1,000 mls @ 125 mls/hr IV .Q8H [place] Stop: 02/01/20 18:19 Last Admin: 01/03/20 05:15 Dose: 125 mls/hr Documented by: Oxytocin 30 units/ Lactated (Ringer's) 1,003 mls @ 125 mls/hr IV .Q8H2M [facility] Stop: 02/01/20 19:14 Last Infusion: 01/03/20 05:15 Dose: Infused Documented by: Promethazine HCl 25 mg/ Sodium (Chloride) 51 mls @ 204 mls/hr IV Q4H PRN PRN Reason: Nausea And Vomiting Stop: 02/02/20 11:23 Ibuprofen (Motrin) 600 mg PO Q4H PRN PRN Reason: Pain Stop: 02/01/20 18:19 Last Admin: 01/07/20 04:43 Dose: 600 mg Documented by: Ketorolac Tromethamine (Toradol) 30 mg IV Q6H PRN PRN Reason: Pain Stop: 01/08/20 11:23 Lurasidone HCl (Latuda) 40 mg PO DAILY PRN PRN Reason: Anxiety Stop: 02/01/20 02:55 Last Admin: 01/05/20 21:19 Dose: 40 mg Documented by: Magnesium Hydroxide (Milk Of Magnesia) 30 ml PO HS PRN PRN Reason: Constipation Stop: 02/01/20 18:19 Last Admin: 01/04/20 02:50 Dose: 30 ml Documented by: Miscellaneous (Remove Nicoderm Patch) 1 ea N/A DAILY@0859 [facility] Stop: 02/03/20 08:58 Last Admin: 01/06/20 08:47 Dose: 1 ea Documented by: Nicotine (Nicoderm Cq) 14 mg TD QAM [facility] Stop: 02/02/20 08:59 Last Admin: 01/06/20 08:47 Dose: 14 mg Documented by: Ondansetron HCl (Zofran) 4 mg IV Q4H PRN PRN Reason: Nausea And Vomiting Stop: 02/02/20 11:23 Oxycodone/Acetaminophen (Percocet 5mg/325mg) 1 - 2 tab PO Q4H PRN PRN Reason: Pain Stop: 01/17/20 11:23 Last Admin: 01/07/20 04:45 Dose: 2 tab Documented by: Prenat Multivit/[place]/Iron/Folic Ac ( Vitamin) 1 tab PO DAILY@08 [facility] Stop: 02/02/20 07:59 Last Admin: 01/06/20 08:47 Dose: 1 tab Documented by: Sennosides (Senokot) 17.2 mg PO HS PRN PRN Reason: Constipation Stop: 02/01/20 18:19 Simethicone (Mylicon) 80 mg PO DAILY@08,13,17,21 [place] Stop: 02/01/20 20:59 Last Admin: 01/06/20 20:11 Dose: 80 mg Documented by: <Dexter Angelo MD - Last Filed: 01/07/20 07:41> Co-Signing Physician Notes Patient doing well and agree with above findings and plan. Stable for discharge today. Resident Activity Tracking <Renuka Smith DO - Last Filed: 01/07/20 06:46> Resident Involvement: Resident Care Provided Care Provided: OB Delivery
--- NOTE | 2020-01-07 08:21 | Communication Note ---
Date of Service: January 07, 2020 Reviewed case with liaison nurse, OB nurse manager regional [place], and reviewed record. Psychiatry is not formally consulted but nursing management had been involved in developing a plan to manage/inform patient of [facility] taking custody of her child, which is apparently happening today. Based on review of the record, advised that patient's outpatient psychiatry appointment with Dr. Alvarez be confirmed and medical records from this hospitalization be sent to him for coordination of care, and if she has a psychotherapist, that person be informed as well. Her BCM Angelykassie Ramos will be involved in today's meeting. Spoke with Dr. Roy, OB attending, and reviewed case. Reviewed that [facility] was involved prior to hospitalization, and that they met with patient during hospitalization but she has not yet been informed that child is being removed from her custody and placed into foster care. Patient's home psychotropic medications (amphetamine/dextroamphetamine and lurasidone) are ordered here, and she has taken 2 doses of the lurasidone since admission (ordered as needed, unclear if that is how it is prescribed by her psychiatrist). She has not endorsed suicidality, homicidality, or psychosis during her hospitalization, but has had episodes of irritability. She has been eating and sleeping, interacting with her baby, and performing ADLs independently. Her BCM and mother have been involved in discharge planning, and [facility] is coming to talk with her today about custody. We will ask liaison nurse to meet with patient now and get releases for her outpatient clinicians in order to coordinate care and ensure adequate aftercare, and a clinician will assess her after the meeting with [facility] based on her reaction to the news.
[2020-01-07] MEDS: SIMETHICONE 80 MG CHEW PO SCH ×2 (09:09→12:32)
[2020-01-07] MEDS: FERROUS SULFATE 325 MG TAB PO SCH (09:09)
[2020-01-07] MEDS: PRENATAL VITAMIN 1 TAB PO SCH (09:09)
[2020-01-07] MEDS: DOCUSATE SODIUM 100 MG CAP PO SCH (09:10)
[2020-01-07] MEDS: AMPHETAMINE ASP/SULF/DEXTRAMPH 10 MG TAB PO SCH (09:10)
[2020-01-07] MEDS: NICOTINE 14 MG/24 HR PATCH TD SCH (09:10)
[2020-01-07] MEDS ORDERED: HALOPERIDOL 10 MG TABLET PO PRN (10:55)
[2020-01-07] MEDS ORDERED: HALOPERIDOL LACTATE 5 MG/ML 1 ML VIAL IM PRN (10:56)
[2020-01-07] MEDS ORDERED: LORazepam 2 MG/ML VIAL (IM USE) IM PRN (10:58)
[2020-01-07] MEDS ORDERED: LORazepam 1 MG TAB PO PRN (10:59)
[2020-01-07] MEDS ORDERED: LORazepam 0.5 MG TAB ONE (12:10)
--- NOTE | 2020-01-07 13:21 | Psychiatric Consultation ---
Date of Consultation January 07, 2020 Impression / Recommendations Impression Dr. Debra Eng was directly involved in review and discussion of the patient's case and participated in medical decision making regarding treatment recommendations. See separate communication note documented by supervising psychiatrist regarding involvement in the patient's case. RECOMMENDATIONS: 01/06 - Psychiatric consultation requested to provide support, as patient is being informed that she has lost custody of her daughter and her anticipated reaction to this new was uncertain. We have also been asked to assist with discharge planning and coordination of care. - Conversation to inform patient of the custody change was handled by [employer] caseworker protective services in conjunction with patient's outpatient mental health case reviewer. Psychiatric nurse liaison present on periphery, and patient was seen by a clinician following delivery of this news. Pt reportedly handled the situation as reasonably as could be expected. recycling manager verifies patient made no threatening statements to herself or the baby. No indication for inpatient psychiatric treatment was reported. Safety plan was coordinated by patient's case reviewer, to include patient's mother taking her home and remaining with the patient to ensure ongoing safety. - It appears patient's lurasidone was communicated to be a prn medication. Most recent external prescription history indicates instructions to take the medication daily with food. Would recommend patient be discharged with instructions to take 40mg daily at a consistent time with 350 calories. - Pt did sign a release for Dr. Alvarez and we will attempt to coordinate aftercare appointment, planning to send our consult note as well for continuity of care. - Pt has a scheduled appointment with Dr. Alvarez on 01/19/2020 at 1300 - as coordinated by her outpatient case reviewer - Please reach out to our service with any additional questions or updates Psych History Identifying Data 34-year-old female admitted to L&D on 01/02/2020 for spontaneous rupture of membranes to proceed with labor process. Pt gave to a female on 01/02/2020 via section. Although clinicians were not officially consulted for acute recommendations until day of anticipated discharge; our staff had been involved with providing support due to CYS stating patient would lose custody of this infant for positive UDS during . Psychiatric consultation for clinician input for coordination of care and discharge planning was requested today. Chief Complaint "Um...um...hi. Are you here to walk down with us?" History of Present Illness Laila Babb is a 34-year-old female admitted to L&D on 01/02/2020 after spontaneous rupture of membranes and increased frequency of contractions. Pt was permitted to labor, as desire was reportedly for . Due to failure to dilate, decision was made to pursue section. Pt delivered a female infant on 01/02/2020. It was reported to our team that patient had a positive UDS, and that CYS was anticipating patient would lose custody of her . As the exact details and facts regarding this situation are unknown, this provider will refrain from documenting any additional historical information in this document regarding this decision. It should be noted, however, that patient's drug screen is appropriately positive for amphetamines - as she is prescribed Adderall 10mg BID; previously prescribed Vyvanse 20mg and has a documented diagnosis of ADHD. Most recent prescription was filled on 01/03/2020 for #60 tabs of Adderall 10mg. Pt has a documented history of bipolar disorder, anxiety, and ADHD - and is reportedly also prescribed lurasidone 40mg daily. This provider did order prn haloperidol and lorazepam PO/IM options in case they should be required - as it is uncertain the level to which the patient may escalate when informed that she will be losing custody of her baby. Updates received prior to visit from psychiatric nurse liaison and from patient's outpatient mental health case reviewer. They report that patient handled the information from the [employer] caseworker protective services as appropriately as one would imagine. She was notably upset by the news and was reportedly crying. Pt did reportedly request and receive medication to assist to calm her down. Pt took prn lorazepam, and declined the haloperidol. It was reported she remained in appropriate behavioral control for the duration of the conversation and was able to participate in discharge planning. Pt's mental health case reviewer states she has no concerns regarding patient's acute safety at this time. She states patient did not verbalize any language suggestive of thoughts to harm self or her and was future oriented toward reunification. recycling manager did verbalize that she did not feel there was an indication to pursue inpatient psychiatric treatment at this time. It was confirmed that the patient does have an outpatient psychiatric appointment with her psychiatrist on 01/19/2020 at 1300. This provider presented to assess patient after patient had been informed that she would be discharged home from the hospital without her baby; with intention to work with [employer] caseworker protective services toward reunification. Pt was observed to be visible upset, tearful and mildly trembling. Pt acknowledged this provider as we exchanged introductions. She was obviously distracted with her packing and conversation with CYS worker, but was observed to be in good behavioral control during this provider's observation. Past Psychiatric History Current Psychiatric Diagnosis: Bipolar disorder; ANASTACIA; ADHD; marijuana abuse Outpatient Services: Dr. Alvarez - Psychiatrist Allergies Allergy/AdvReac Type Severity Reaction Status Date / Time capsaicin Allergy Unknown facial Verified 12/29/19 14:19 swelling lamotrigine [From Lamictal] Allergy Rash Verified 12/29/19 14:19 Home Medications Home Medications Medication Instructions Recorded Confirmed Type Latuda 40 mg PO DAILY PRN 12/29/19 01/02/20 History Vitamin 1 tab PO DAILY 12/29/19 01/02/20 History dextroamphetamine-amphetamine 10 mg PO BID 12/29/19 01/02/20 History [Adderall] nicotine 14 mg TRANSDERMAL QAM 30 Days #30 01/07/20 Rx ea oxycodone-acetaminophen [Percocet] 1 - 2 tab PO Q4H PRN #14 tab 01/07/20 Rx Substance Abuse History UDS positive for marijuana, with documented history of marijuana abuse. UDS also positive for amphetamine, which would be consistent with verified prescriptions for Adderall. Personal History Living Arrangements: Home Marital Status: Single Number Of Children: 2 - mother has custody of first child; female Beliefs That Will Affect Care: None Patient History Medical History Bipolar 1 disorder (Chronic) Depression (Chronic) HSV-2 (herpes simplex virus 2) infection noted from record from [facility] with last . Patient will not discuss her history Marijuana abuse Obesity (Chronic) psychosis with last Suicide attempt with Adderall in March 2012 TMJ (dislocation of temporomandibular joint) unsure of when diagnosed Varicella Surgical History History of section S/P ACL repair Status post left knee surgery Family History Father Father Stroke Diabetes Mother Hypertension Social History Preferred Language: Bahraini Communication Ability: Effective Refrigeration Systems Installer Required: No Beliefs That Will Affect Care: None marital status: single marital status details: KINA Cheney (45) [phone] Current Living Situation: Alone current occupational status: unemployed Feels Safe at Home: Yes Smoking Status: Current every day smoker Tobacco Type: cigarettes ; Cigarettes Per Day: 5-10 ; Second Hand Exposure: Yes ; Hx Alcohol Use: No Hx Substance Use: Yes substance use type: marijuana Substance Use Type Other:: pt states she has a medical marijuana card Last Used Substance: Just Prior to Arrival Physical Exam Psychiatric: Orientation: alert, oriented x 3 and cooperative Apperance: appropriately dressed, appropriately groomed and appeared stated age Eye Contact: + fair eye contact (intermittent direct eye contact, distracted with other activity in the room) Motor Behavior: steady gait and station and no abnormal motor movements Speech: normal rate/rhythm/volume of speech Affect: + depressed affect and + tearful affect Thought Process: goal directed thought process and thought association intact Insight: + fair insight Judgement: + fair judgement Mental status examination is admittedly limited by duration of encounter - patient was distracted with other activity in the room and therefore was not overly engaged in conversation with this provider. Vital Signs (Past 24 Hours): Last Vital Signs Temp 36.5 C 01/07/20 08:13 Pulse 87 01/07/20 08:13 Resp 20 01/07/20 08:13 BP 142/89 H 01/07/20 08:13 Pulse Ox 98 01/07/20 08:13 Review of Systems Interaction with patient was somewhat limited given the unique situation; she did not verbalize any physical complaints during this provider's interaction. Results & Data (PSY) Medications Administered Alprazolam (Xanax) 0.5 mg PO Q8H PRN PRN Reason: Agitation Stop: 02/03/20 12:55 Last Admin: 01/07/20 04:43 Dose: 0.5 mg Documented by: [id number] Admin: 01/06/20 20:11 Dose: 0.5 mg Documented by: [id number] Admin: 01/06/20 12:31 Dose: 0.5 mg Documented by: [id number] Admin: 01/05/20 21:19 Dose: 0.5 mg Documented by: [id number] Admin: 01/05/20 12:32 Dose: 0.5 mg Documented by: [id number] Admin: 01/05/20 04:09 Dose: 0.5 mg Documented by: [id number] Admin: 01/04/20 17:00 Dose: 0.5 mg Documented by: [id number] Amphetamine/Dextroamphetamine (Adderall) 10 mg PO BID@0800,1600 [facility] Stop: 01/19/20 15:59 Last Admin: 01/07/20 09:10 Dose: 10 mg Documented by: [id number] Admin: 01/06/20 15:28 Dose: 10 mg Documented by: [id number] Admin: 01/06/20 08:47 Dose: 10 mg Documented by: [id number] Admin: 01/05/20 17:03 Dose: 10 mg Documented by: [id number] Calcium Carbonate (Tums) 500 mg PO Q4H PRN PRN Reason: Indigestion Stop: 02/01/20 01:46 Last Admin: 01/02/20 08:35 Dose: 500 mg Documented by: [id number] Docusate Sodium (Colace) 100 mg PO DAILY@08, [facility] Stop: 02/01/20 20:59 Last Admin: 01/07/20 09:10 Dose: 100 mg Documented by: [id number] Admin: 01/06/20 20:11 Dose: 100 mg Documented by: [id number] Admin: 01/06/20 08:47 Dose: 100 mg Documented by: [id number] Admin: 01/05/20 21:19 Dose: Not Given Documented by: [id number] Admin: 01/05/20 08:15 Dose: 100 mg Documented by: [id number] Admin: 01/04/20 21:03 Dose: 100 mg Documented by: [id number] Admin: 01/04/20 08:31 Dose: 100 mg Documented by: [id number] Admin: 01/03/20 20:25 Dose: 100 mg Documented by: [id number] Admin: 01/03/20 09:00 Dose: 100 mg Documented by: [id number] Admin: 01/02/20 20:48 Dose: 100 mg Documented by: [id number] Ferrous Sulfate (Feosol) 325 mg PO DAILY@08 [facility] Stop: 02/02/20 07:59 Last Admin: 01/07/20 09:09 Dose: 325 mg Documented by: [id number] Admin: 01/06/20 08:47 Dose: 325 mg Documented by: [id number] Admin: 01/05/20 08:15 Dose: 325 mg Documented by: [id number] Admin: 01/04/20 08:31 Dose: 325 mg Documented by: [id number] Admin: 01/03/20 09:00 Dose: 325 mg Documented by: [id number] Lactated Ringer's (Lr) 1,000 mls @ 125 mls/hr IV .Q8H [facility] Stop: 02/01/20 18:19 Last Admin: 01/03/20 05:15 Dose: 125 mls/hr Documented by: [id number] Oxytocin 30 units/ Lactated (Ringer's) 1,003 mls @ 125 mls/hr IV .Q8H2M [facility] Stop: 02/01/20 19:14 Last Infusion: 01/03/20 05:15 Dose: 0 mls/hr Documented by: [id number] Cosigned by: [id number] Admin: 01/02/20 19:27 Dose: 125 mls/hr Documented by: [id number] Cosigned by: [id number] Ibuprofen (Motrin) 600 mg PO Q4H PRN PRN Reason: Pain Stop: 02/01/20 18:19 Last Admin: 01/07/20 12:32 Dose: 600 mg Documented by: [id number] Admin: 01/07/20 09:10 Dose: 600 mg Documented by: [id number] Admin: 01/07/20 04:43 Dose: 600 mg Documented by: [id number] Admin: 01/06/20 23:56 Dose: 600 mg Documented by: [id number] Admin: 01/06/20 15:28 Dose: 600 mg Documented by: [id number] Admin: 01/06/20 10:03 Dose: 600 mg Documented by: [id number] Admin: 01/06/20 06:00 Dose: 600 mg Documented by: [id number] Admin: 01/05/20 23:25 Dose: 600 mg Documented by: [id number] Admin: 01/05/20 17:06 Dose: 600 mg Documented by: [id number] Admin: 01/05/20 12:33 Dose: 600 mg Documented by: [id number] Admin: 01/05/20 06:35 Dose: 600 mg Documented by: [id number] Admin: 01/05/20 00:03 Dose: 600 mg Documented by: [id number] Admin: 01/04/20 21:03 Dose: 600 mg Documented by: [id number] Admin: 01/04/20 17:01 Dose: 600 mg Documented by: [id number] Admin: 01/04/20 12:12 Dose: 600 mg Documented by: [id number] Admin: 01/04/20 08:31 Dose: 600 mg Documented by: [id number] Admin: 01/04/20 02:50 Dose: 600 mg Documented by: [id number] Admin: 01/03/20 20:25 Dose: 600 mg Documented by: [id number] Admin: 01/03/20 14:34 Dose: 600 mg Documented by: [id number] Admin: 01/03/20 10:39 Dose: 600 mg Documented by: [id number] Lurasidone HCl (Latuda) 40 mg PO DAILY PRN PRN Reason: Anxiety Stop: 02/01/20 02:55 Last Admin: 01/05/20 21:19 Dose: 40 mg Documented by: [id number] Admin: 01/04/20 21:03 Dose: 40 mg Documented by: [id number] Magnesium Hydroxide (Milk Of Magnesia) 30 ml PO HS PRN PRN Reason: Constipation Stop: 02/01/20 18:19 Last Admin: 01/04/20 02:50 Dose: 30 ml Documented by: [id number] Miscellaneous (Remove Nicoderm Patch) 1 ea N/A DAILY@0859 [facility] Stop: 02/03/20 08:58 Last Admin: 01/07/20 09:15 Dose: 1 ea Documented by: [id number] Admin: 01/06/20 08:47 Dose: 1 ea Documented by: [id number] Admin: 01/05/20 08:40 Dose: Not Given Documented by: [id number] Admin: 01/04/20 09:47 Dose: 1 ea Documented by: [id number] Nicotine (Nicoderm Cq) 14 mg TD QAM [facility] Stop: 02/02/20 08:59 Last Admin: 01/07/20 09:10 Dose: 14 mg Documented by: [id number] Admin: 01/06/20 08:47 Dose: 14 mg Documented by: [id number] Admin: 01/05/20 08:15 Dose: 14 mg Documented by: [id number] Admin: 01/04/20 09:47 Dose: 14 mg Documented by: [id number] Admin: 01/03/20 09:00 Dose: 14 mg Documented by: [id number] Oxycodone/Acetaminophen (Percocet 5mg/325mg) 1 - 2 tab PO Q4H PRN PRN Reason: Pain Stop: 01/17/20 11:23 Last Admin: 01/07/20 12:32 Dose: 1 tab Documented by: [id number] Admin: 01/07/20 09:11 Dose: 1 tab Documented by: [id number] Admin: 01/07/20 04:45 Dose: 2 tab Documented by: [id number] Admin: 01/06/20 23:54 Dose: 2 tab Documented by: [id number] Admin: 01/06/20 15:31 Dose: 2 tab Documented by: [id number] Admin: 01/06/20 10:02 Dose: 1 tab Documented by: [id number] Admin: 01/06/20 06:00 Dose: 1 tab Documented by: [id number] Admin: 01/05/20 23:25 Dose: 1 tab Documented by: [id number] Admin: 01/05/20 17:05 Dose: 1 tab Documented by: [id number] Admin: 01/05/20 12:31 Dose: 1 tab Documented by: [id number] Admin: 01/05/20 06:35 Dose: 1 tab Documented by: [id number] Admin: 01/05/20 00:04 Dose: 1 tab Documented by: [id number] Admin: 01/04/20 21:05 Dose: 1 tab Documented by: [id number] Admin: 01/04/20 17:00 Dose: 1 tab Documented by: [id number] Admin: 01/04/20 12:11 Dose: 1 tab Documented by: [id number] Admin: 01/04/20 08:32 Dose: 1 tab Documented by: [id number] Admin: 01/04/20 02:49 Dose: 1 tab Documented by: [id number] Admin: 01/03/20 21:52 Dose: 1 tab Documented by: [id number] Admin: 01/03/20 14:34 Dose: 1 tab Documented by: [id number] Admin: 01/03/20 10:40 Dose: 1 tab Documented by: [id number] Prenat Multivit/Student Outreach Coordinator/Iron/Folic Ac ( Vitamin) 1 tab PO DAILY@08 [facility] Stop: 02/02/20 07:59 Last Admin: 01/07/20 09:09 Dose: 1 tab Documented by: [id number] Admin: 01/06/20 08:47 Dose: 1 tab Documented by: [id number] Admin: 01/05/20 08:15 Dose: 1 tab Documented by: [id number] Admin: 01/04/20 09:48 Dose: 1 tab Documented by: [id number] Admin: 01/03/20 09:00 Dose: 1 tab Documented by: [id number] Simethicone (Mylicon) 80 mg PO DAILY@08,,,21 [facility] Stop: 02/01/20 20:59 Last Admin: 01/07/20 12:32 Dose: 80 mg Documented by: [id number] Admin: 01/07/20 09:09 Dose: 80 mg Documented by: [id number] Admin: 01/06/20 20:11 Dose: 80 mg Documented by: [id number] Admin: 01/06/20 19:40 Dose: Not Given Documented by: [id number] Admin: 01/06/20 12:31 Dose: 80 mg Documented by: [id number] Admin: 01/06/20 08:47 Dose: 80 mg Documented by: [id number] Admin: 01/05/20 21:19 Dose: Not Given Documented by: [id number] Admin: 01/05/20 17:03 Dose: 80 mg Documented by: [id number] Admin: 01/05/20 12:32 Dose: 80 mg Documented by: [id number] Admin: 01/05/20 08:15 Dose: 80 mg Documented by: [id number] Admin: 01/04/20 21:03 Dose: 80 mg Documented by: [id number] Admin: 01/04/20 17:01 Dose: 80 mg Documented by: [id number] Admin: 01/04/20 12:12 Dose: 80 mg Documented by: [id number] Admin: 01/04/20 08:31 Dose: 80 mg Documented by: [id number] Admin: 01/03/20 20:25 Dose: 80 mg Documented by: [id number] Admin: 01/03/20 18:03 Dose: 80 mg Documented by: [id number] Admin: 01/03/20 14:34 Dose: 80 mg Documented by: [id number] Admin: 01/03/20 09:00 Dose: 80 mg Documented by: [id number] Admin: 01/02/20 20:48 Dose: 80 mg Documented by: [id number] Coding Level of Care Code 90938 [facility] Intl Hosp Care Lvl 1
--- NOTE | 2020-01-11 09:26 | Discharge Summary ---
Date of Service January 11, 2020 Admission HPI Per Admitting Provider 34yo at 38.4 weeks GA. Present with LOF. Reports large gush and persistent trickle. Reporting that contractions are starting to increase. Denies VB. Good FM. complicated prior for distress at prolonged dilation to 9.5cm. Patient desires TOLAC. Risk of TOLAC/ discussed including failure, need for urgent/emergent and uterine rupture. further complicated by noncompliant A2gDM, AMA, substance abuse during , RH negative, obesity, multiple psychiatric issues and tobacco use. EFW 3300g 74% on 12/22. AC 68% on 12/28 Discharge Data Consultations 01/02/20 00:48 Consult Anesthesiology Stat 01/03/20 06:44 Consult Case Management - Discharge Planning Routine 01/07/20 09:24 Consult Psychiatry Routine Procedures Performed Operation Date: 01/02/20 16:40 Actual Procedures p Section in LD with of live female child at 1710 - Henrietta Roy DO Hospital Course (1) : Patient was admitted in labor, with plans to attempt . However, failed to dilate and underwent repeat section. Was evaluated by CYS regarding custody of this baby (she does not have custody of her other child) and the ultimate decision was by CYS to not award custody to patient. She was discharged home POD#5, as this process took multiple days. Her outpatient psych providers had expressed concern that patient may harm self upon hearing this verdict, and first behavioral health speaking unit assembler RN and then psychiatry at [facility] was consulted to assess/help this decision-making upon patient receiving this news. She was determined to have appropriate grief/response, and was not felt to be a danger to herself or others and was discharged to home to followup both with planned outpatient psych visit and 6w visit with OB. Coding Level of Care Code None Diagnoses Z34.90
== END 2020-01-07 13:45 | disposition home or self-care (01) | DRG 787 ==
LOC: OPB 00:30 → 4S1 00:35 → 4S2 20:15

== ENCOUNTER 2020-04-19 20:00 | Inpatient (IN) ==
[2020-04-19 20:23] LABS: Appearance Urine Turbid (Clear); Bacteria Urine Automated 1+ (Negative); Bilirubin Urine Negative (Negative); Blood Urine 2+ (Negative); Color Urine Dark Yellow; Epithelial Cell Urine Auto >30 /lpf (0-5); Glucose Urine UA Negative (Negative); Ketones Urine Trace (Negative); Leukocyte Esterase Urine 2+ (Negative); Nitrite Urine Negative (Negative); Protein Urine Trace (Negative); Specific Gravity Urine 1.031 (1.000-1.030); Urobilinogen Urine Negative (Negative); WBC Urine Automated >30 /hpf (0-5)
--- NOTE | 2020-04-19 20:53 | Emergency Department Note ---
Impression & Plan Suicidal ideation, Mood disorder ED Provider Note NAME: ALESHIA CROWLEY AGE: 34 SEX: F : 1985 ARRIVES VIA: Walk-In INFORMANT: Patient ED PROVIDER(S): Arnoldo Kim DO CHIEF COMPLAINT: Suicidal ideations HPI: Patient is a 34-year-old female who presents the ER for suicidal ideations. They have been going on since this past March. They have been gradually worsening. She admits to thoughts of wanting to hang herself or suffocate herself. She denies any homicidal ideations. No auditory or visual hallucinations. She notes that she does have a 3-month-old who she does not have care that is making her more depressed in combination with financial issue s. She went drinking this weekend and stop taking her psych medications. She denies any headache, change in vision, chest pain shortness of breath nausea vomiting or diarrhea. ROS: See above HPI for pertinent positives & negatives. A total of 10 systems reviewed and were otherwise negative. PAST MEDICAL HISTORY:See Below PAST SURGICAL HISTORY:See Below FAMILY HISTORY:See Below SOCIAL HISTORY:See Below HOME MEDICATIONS:See Below ALLERGIES:See Below VITALS:See Below PHYSICAL EXAMINATION: GENERAL: Sitting up in bed, alert, well appearing, well nourished, no distress, non-toxic EYE EXAM: normal conjunctiva. OROPHARYNX: mucous membranes are moist LUNGS: Clear to auscultation. Normal chest wall mechanics HEART: no murmurs, S1 normal and S2 normal ABDOMEN: abdomen soft, non-tender, normo-active bowel sounds, no masses, no rebound or guarding. UPPER EXTREMITIES: upper extremities are grossly normal. LOWER EXTREMITIES: No pitting edema. NEURO EXAM: Normal sensorium, normal speech. PSYCH: Admits to suicidal ideations with a plan to suffocate and hang self MEDICAL DECISION MAKING: Patient is a 34-year-old female with a past medical history of bipolar disorder ADHD who presents the ER for suicidal ideations with a plan to hang or suffocate herself. She notes that she does want to come in for treatment. She stopped taking her psychiatric medications this past weekend. She denies any physical complaints. CBC shows no significant leukocytosis or anemia. BMP along with LFTs bilirubin and TSH was unremarkable. UA was contaminated. No urinary symptoms. Will not treat. was negative. Patient was updated bedside. [facility] does has beds. Referral was made and patient will be admitted on 201 for suicidal ideations. Patient was signed out to Dr. Alcantara at the change of shift awaiting placement. Observation Status: Indication: Psych Patient with a family history of Diabetes, was seen first at 2040 hrs on 04/19/20and was necessary in order to determine medical stability and avoid unne cessary admission. Upon reevaluation, 4.5 hours of observation revealed that the patient should be admitted to a psychiatric facility. Disposition date and time 04/20/20 at 0115. Triage Nursing notes reviewed. Prior medical records reviewed Vital Signs: reviewed and remarkable for no significant abnormalities Differential diagnosis: Mood disorder, infection, hypoglycemia, electrolyte abnormalities, cardiac sources, intracerebral event, toxicologic, trauma, neurologic, as well as other pathologies. ER treatment provided: See below Diagnostics interpreted by me: ECG: none Laboratory studies: As stated above and show below. Imaging studies: none Consultation(s): none ED COURSE: Procedures: none Critical Care: None Past Med/Surg History Social History Preferred Language: Arabic Communication Ability: Effective Regional Agronomist Required: No Beliefs That Will Affect Care: None marital status: single marital status details: KINA Cheney (45) [phone] Current Living Situation: Alone current occupational status: unemployed Feels Safe at Home: Yes Smoking Status: Current every day smoker Tobacco Type: cigarettes ; Cigarettes Per Day: 5-10 ; Second Hand Exposure: Yes ; Hx Alcohol Use: No Hx Substance Use: Yes substance use type: marijuana Substance Use Type Other:: pt states she has a medical marijuana card Last Used Substance: Just Prior to Arrival Allergies Allergies Allergy/AdvReac Type Severity Reaction Status Date / Time capsaicin Allergy Unknown facial Verified 04/19/20 20:59 swelling lamotrigine [From Lamictal] Allergy Rash Verified 04/19/20 20:59 Home Meds Home Medications Medication Instructions Recorded Confirmed dextroamphetamine-amphetamine 60 mg PO BID 04/19/20 04/19/20 [Adderall XR] haloperidol 1 mg PO HS 04/19/20 04/19/20 hydroxyzine pamoate [Vistaril] 50 mg PO TID PRN 04/19/20 04/19/20 lorazepam [Ativan] 0.5 mg PO TID PRN 04/19/20 04/19/20 Previous Rx's Medication Instructions Recorded etonogestrel 0.12 mg-ethinyl 1 vag ring PV ONCE #3 ea 02/08/20 estradiol 0.015 mg/24 hr vaginal ring Results & Data (ED) Vital Signs Vital Signs - 24 hr 04/19/20 20:05 04/19/20 21:38 04/19/20 23:16 Temperature 37.1 C Temperature Source Oral Pulse Rate 82 Pulse Rate [Right Finger] 95 H 88 Respiratory Rate 18 20 18 Respiratory Effort / Characteristics Non-Labored Non-Labored Spontaneous Respiratory Depth Normal Normal Respiratory Pattern Regular Regular Blood Pressure 143/94 H Blood Pressure [Right Arm] 129/89 114/80 Blood Pressure Mean 110 Blood Pressure Mean [Right Arm] 102 91 Pulse Oximetry 99 99 99 Oxygen Delivery Method Room Air Room Air Room Air Sepsis Recent Fever Within 48 Hours No Sepsis Action Taken by Nursing No Action Required Laboratory Data Result diagrams: 04/19/20 20:44 04/19/20 20:44 Lab Results 04/19/20 04/19/20 04/19/20 Range/Units 20:13 20:13 20:23 WBC (4.8-10.8) K/uL RBC (4.2-5.4) M/uL Hgb (12.0-16.0) g/dL Hct (37-47) % MCV (80-100) fL MCH (25-34) pg MCHC (32-36) g/dL RDW Std Deviation (36.4-46.3) fL RDW Coeff of Mao (11.5-14.5) % Plt Count (130-400) K/uL MPV (7.4-10.4) fL Immature Gran % (Auto) % Neut % (Auto) % Lymph % (Auto) % Randolph % (Auto) % Eos % (Auto) % Baso % (Auto) % Neut # (Auto) (1.4-6.5) K/uL Lymph # (Auto) (1.2-3.4) K/uL Randolph # (Auto) (0.11-0.59) K/uL Eos # (Auto) (0-0.5) K/uL Baso # (Auto) (0-0.2) K/uL Immature Gran # (Auto) (0.00-0.02) K/uL Sodium (136-145) mmol/L Potassium (3.5-5.1) mmol/L Chloride (98-107) mmol/L Carbon Dioxide (21-32) mmol/L Anion Gap (3-11) BUN (7-18) mg/dl Creatinine (0.6-1.2) mg/dl Est Cr Clr Drug Dosing ml/min Est GFR ( Amer) Est GFR (Non-Af Amer) BUN/Creatinine Ratio (10-20) Glucose (70-99) mg/dl Calcium (8.5-10.1) mg/dl Total Bilirubin (0.2-1) mg/dl AST (15-37) U/L ALT (12-78) U/L Alkaline Phosphatase (45-117) U/L Total Protein (6.4-8.2) gm/dl Albumin (3.4-5.0) gm/dl Globulin (2.5-4.0) gm/dl Albumin/Globulin Ratio (0.9-2) TSH (0.300-4.500) uIu/ml Urine Color Dark Yellow Urine Appearance Turbid A (Clear) Urine pH 5.0 (4.5-7.5) Ur Specific Castella 1.031 H (1.000-1.030) Urine Protein Trace H (Negative) Urine Glucose (UA) Negative (Negative) Urine Ketones Trace H (Negative) Urine Blood 2+ H (Negative) Urine Nitrite Negative (Negative) Urine Bilirubin Negative (Negative) Urine Urobilinogen Negative (Negative) Ur Leukocyte Esterase 2+ H (Negative) Urine WBC (Auto) >30 H (0-5) /hpf Urine RBC (Auto) 5-10 H (0-4) /hpf U Hyaline Cast (Auto) 1-5 (0-5) /lpf U Epithel Cells (Auto) >30 H (0-5) /lpf Urine Bacteria (Auto) 1+ H (Negative) Urine Crystals Calcium Oxalate A (None Prsent) Calcium Oxalate Crystal Present A (None Prsent) POC Ur Test NEG (NEG) Salicylates (2.8-20) mg/dl Urine Opiates Screen Neg (Neg) Ur Methadone, Qual Neg (Neg) Acetaminophen (10-30) ug/ml Urine Barbiturates Neg (Neg) Ur Phencyclidine (PCP) Neg (Neg) U Amphetamin/Meth Scrn Pos H (Neg) MDMA (Ecstasy) Screen Pos H (Neg) U Benzodiazepines Scrn Neg (Neg) Ur Cocaine Metabolite Neg (Neg) U Marijuana (THC) Screen Pos H (Neg) Ethyl Alcohol mg/dL (0-3) mg/dl 04/19/20 04/19/20 04/19/20 Range/Units 20:44 20:44 20:44 WBC 8.92 (4.8-10.8) K/uL RBC 5.13 (4.2-5.4) M/uL Hgb 16.6 H (12.0-16.0) g/dL Hct 47.3 H (37-47) % MCV 92.2 (80-100) fL MCH 32.4 (25-34) pg MCHC 35.1 (32-36) g/dL RDW Std Deviation 44.5 (36.4-46.3) fL RDW Coeff of Mao 13.1 (11.5-14.5) % Plt Count 276 (130-400) K/uL MPV 10.5 H (7.4-10.4) fL Immature Gran % (Auto) 0.1 % Neut % (Auto) 56.2 % Lymph % (Auto) 34.3 % Randolph % (Auto) 7.5 % Eos % (Auto) 1.7 % Baso % (Auto) 0.2 % Neut # (Auto) 5.01 (1.4-6.5) K/uL Lymph # (Auto) 3.06 (1.2-3.4) K/uL Randolph # (Auto) 0.67 H (0.11-0.59) K/uL Eos # (Auto) 0.15 (0-0.5) K/uL Baso # (Auto) 0.02 (0-0.2) K/uL Immature Gran # (Auto) 0.01 (0.00-0.02) K/uL Sodium 140 (136-145) mmol/L Potassium 4.0 (3.5-5.1) mmol/L Chloride 109 H (98-107) mmol/L Carbon Dioxide 25 (21-32) mmol/L Anion Gap 5.0 (3-11) BUN 14 (7-18) mg/dl Creatinine 0.77 (0.6-1.2) mg/dl Est Cr Clr Drug Dosing 115.2 ml/min Est GFR ( Amer) 115.9 Est GFR (Non-Af Amer) 100.0 BUN/Creatinine Ratio 18.6 (10-20) Glucose 83 (70-99) mg/dl Calcium 9.1 (8.5-10.1) mg/dl Total Bilirubin 0.3 (0.2-1) mg/dl AST 24 (15-37) U/L ALT 64 (12-78) U/L Alkaline Phosphatase 90 (45-117) U/L Total Protein 7.2 (6.4-8.2) gm/dl Albumin 3.5 (3.4-5.0) gm/dl Globulin 3.7 (2.5-4.0) gm/dl Albumin/Globulin Ratio 0.9 (0.9-2) TSH 0.543 (0.300-4.500) uIu/ml Urine Color Urine Appearance (Clear) Urine pH (4.5-7.5) Ur Specific Castella (1.000-1.030) Urine Protein (Negative) Urine Glucose (UA) (Negative) Urine Ketones (Negative) Urine Blood (Negative) Urine Nitrite (Negative) Urine Bilirubin (Negative) Urine Urobilinogen (Negative) Ur Leukocyte Esterase (Negative) Urine WBC (Auto) (0-5) /hpf Urine RBC (Auto) (0-4) /hpf U Hyaline Cast (Auto) (0-5) /lpf U Epithel Cells (Auto) (0-5) /lpf Urine Bacteria (Auto) (Negative) Urine Crystals (None Prsent) Calcium Oxalate Crystal (None Prsent) POC Ur Test (NEG) Salicylates 2.3 L (2.8-20) mg/dl Urine Opiates Screen (Neg) Ur Methadone, Qual (Neg) Acetaminophen < 2 L (10-30) ug/ml Urine Barbiturates (Neg) Ur Phencyclidine (PCP) (Neg) U Amphetamin/Meth Scrn (Neg) MDMA (Ecstasy) Screen (Neg) U Benzodiazepines Scrn (Neg) Ur Cocaine Metabolite (Neg) U Marijuana (THC) Screen (Neg) Ethyl Alcohol mg/dL (0-3) mg/dl 06/30/20 Range/Units 20:44 WBC (4.8-10.8) K/uL RBC (4.2-5.4) M/uL Hgb (12.0-16.0) g/dL Hct (37-47) % MCV (80-100) fL MCH (25-34) pg MCHC (32-36) g/dL RDW Std Deviation (36.4-46.3) fL RDW Coeff of Mao (11.5-14.5) % Plt Count (130-400) K/uL MPV (7.4-10.4) fL Immature Gran % (Auto) % Neut % (Auto) % Lymph % (Auto) % Randolph % (Auto) % Eos % (Auto) % Baso % (Auto) % Neut # (Auto) (1.4-6.5) K/uL Lymph # (Auto) (1.2-3.4) K/uL Randolph # (Auto) (0.11-0.59) K/uL Eos # (Auto) (0-0.5) K/uL Baso # (Auto) (0-0.2) K/uL Immature Gran # (Auto) (0.00-0.02) K/uL Sodium (136-145) mmol/L Potassium (3.5-5.1) mmol/L Chloride (98-107) mmol/L Carbon Dioxide (21-32) mmol/L Anion Gap (3-11) BUN (7-18) mg/dl Creatinine (0.6-1.2) mg/dl Est Cr Clr Drug Dosing ml/min Est GFR ( Amer) Est GFR (Non-Af Amer) BUN/Creatinine Ratio (10-20) Glucose (70-99) mg/dl Calcium (8.5-10.1) mg/dl Total Bilirubin (0.2-1) mg/dl AST (15-37) U/L ALT (12-78) U/L Alkaline Phosphatase (45-117) U/L Total Protein (6.4-8.2) gm/dl Albumin (3.4-5.0) gm/dl Globulin (2.5-4.0) gm/dl Albumin/Globulin Ratio (0.9-2) TSH (0.300-4.500) uIu/ml Urine Color Urine Appearance (Clear) Urine pH (4.5-7.5) Ur Specific Castella (1.000-1.030) Urine Protein (Negative) Urine Glucose (UA) (Negative) Urine Ketones (Negative) Urine Blood (Negative) Urine Nitrite (Negative) Urine Bilirubin (Negative) Urine Urobilinogen (Negative) Ur Leukocyte Esterase (Negative) Urine WBC (Auto) (0-5) /hpf Urine RBC (Auto) (0-4) /hpf U Hyaline Cast (Auto) (0-5) /lpf U Epithel Cells (Auto) (0-5) /lpf Urine Bacteria (Auto) (Negative) Urine Crystals (None Prsent) Calcium Oxalate Crystal (None Prsent) POC Ur Test (NEG) Salicylates (2.8-20) mg/dl Urine Opiates Screen (Neg) Ur Methadone, Qual (Neg) Acetaminophen (10-30) ug/ml Urine Barbiturates (Neg) Ur Phencyclidine (PCP) (Neg) U Amphetamin/Meth Scrn (Neg) MDMA (Ecstasy) Screen (Neg) U Benzodiazepines Scrn (Neg) Ur Cocaine Metabolite (Neg) U Marijuana (THC) Screen (Neg) Ethyl Alcohol mg/dL < 3.0 (0-3) mg/dl Administered Medications Miscellaneous (Remove Nicoderm Patch) 1 ea N/A DAILY@[id number] [facility] Stop: 05/20/20 08:58 Last Admin: 04/19/20 21:40 Dose: Not Given Documented by: [id number] Discontinued Medications Amphetamine/Dextroamphetamine (Adderall Er) 30 mg PO NOW ONE Stop: 04/19/20 21:31 Last Admin: 04/19/20 21:31 Dose: 30 mg Documented by: [id number] Haloperidol (Haldol) 5 mg PO NOW STA Stop: 04/19/20 21:16 Last Admin: 04/19/20 21:31 Dose: 2.5 mg Documented by: [id number] Hydroxyzine HCl (Vistaril) 50 mg PO NOW STA Stop: 04/19/20 21:16 Last Admin: 04/19/20 21:31 Dose: 50 mg Documented by: [id number] Nicotine (Nicoderm Cq) Confirm Administered Dose 14 mg TD .STK-MED ONE Stop: 04/19/20 21:26 Last Admin: 04/19/20 21:30 Dose: 14 mg Documented by: [id number] Discharge Plan Visit Data Chief Complaint: Mental Health Evaluation Stated Complaint: REF TO COME IN BY CRISIS ED Provider: Arnoldo Kim ED Midlevel Provider: Cameron Robles Discharge Problem: Suicidal ideation, Mood disorder Forms Stand Alone Forms: My [facility], Suicide Prevention Resources Prescriptions Prescriptions: No Action etonogestrel-ethinyl estradiol [NuvaRing] 0.12-0.015 mg/24 hr ring 1 vag ring PV ONCE Qty: 3 RF: 4 hydroxyzine pamoate [Vistaril] 50 mg capsule 50 mg PO TID PRN (Reason: Anxiety) RF: 0 lorazepam [Ativan] 0.5 mg tablet 0.5 mg PO TID PRN (Reason: Anxiety) RF: 0 dextroamphetamine-amphetamine [Adderall XR] 30 mg capsule,extended release 24hr 60 mg PO BID RF: 0 haloperidol 2 mg Tablet 1 mg PO HS RF: 0
[2020-04-19 20:55] LABS: Amphetamines+Metham, Urine Pos (Neg); Barbiturates, Urine Neg (Neg); Benzodiazepine, Urine Neg (Neg); Cocaine, Urine Neg (Neg); MDMA (Ecstacy), Urine Pos (Neg); Methadone, Urine Neg (Neg); Opiate, Urine Neg (Neg); Phencyclidine, Urine Neg (Neg)
[2020-04-19 21:02] LABS: Basophils # (auto) 0.02 K/uL (0-0.2); Basophils % (auto) 0.2 %; Eosinophils # (auto) 0.15 K/uL (0-0.5); Eosinophils % (auto) 1.7 %; Hematocrit (blood only) 47.3 % (37-47); Hemoglobin 16.6 g/dL (12.0-16.0); Immature Granulocytes # (auto) 0.01 K/uL (0.00-0.02); Immature Granulocytes % (auto) 0.1 %; Lymphocytes # (auto) 3.06 K/uL (1.2-3.4); Lymphocytes % (auto) 34.3 %; Mean Corpuscular Hemoglobin 32.4 pg (25-34); Mean Corpuscular Hgb Conc 35.1 g/dL (32-36); Mean Corpuscular Volume 92.2 fL (80-100); Mean Platelet Volume 10.5 fL (7.4-10.4); Monocytes # (auto) 0.67 K/uL (0.11-0.59); Monocytes % (auto) 7.5 %; Neutrophils # (auto) 5.01 K/uL (1.4-6.5); Neutrophils % (auto) 56.2 %; Platelet Count 276 K/uL (130-400); RDW Coefficient of Variation 13.1 % (11.5-14.5); RDW Standard Deviation 44.5 fL (36.4-46.3); Red Blood Count 5.13 M/uL (4.2-5.4); White Blood Count 8.92 K/uL (4.8-10.8)
[2020-04-19 21:04] LABS: Calcium Oxalate Crystals Urine Present (None Prsent)
[2020-04-19] MEDS ORDERED: haloperidoL 5 MG TAB PO STA (21:15)
[2020-04-19] MEDS ORDERED: AMPHETAMINE ASP/SULF/DEXTRAMPH ER 20 MG CAP PO STA (21:15)
[2020-04-19 21:20] LABS: Acetaminophen < 2 ug/ml (10-30); Salicylate 2.3 mg/dl (2.8-20)
[2020-04-19 21:21] LABS: Albumin Level 3.5 gm/dl (3.4-5.0); BUN Creatinine Ratio 18.6 (10-20); Calcium 9.1 mg/dl (8.5-10.1); Creatinine Clr Calc Pharmacy 115.2 ml/min; Est GFR (African American) 115.9
[2020-04-19] MEDS ORDERED: NICOTINE 14 MG/24 HR PATCH TD ONE (21:25)
[2020-04-19] MEDS ORDERED: DEXTROAMPHETAMINE/AMPHETAMINE ER 10 MG CAP PO ONE (21:30)
[2020-04-19 21:32] LABS: Albumin Globulin Ratio 0.9 (0.9-2); Bilirubin,Total 0.3 mg/dl (0.2-1); Globulin 3.7 gm/dl (2.5-4.0); Thyroid Stimulating Hormone 0.543 uIu/ml (0.300-4.500); Total Protein 7.2 gm/dl (6.4-8.2)
--- NOTE | 2020-04-20 02:09 | Emergency Department Note ---
ED Visit Note This case was signed out to me at change of shift awaiting bed placement. The patient has been accepted to [facility] Paperwork was signed. She will go up voluntarily. .
[2020-04-20] MEDS ORDERED: BISMUTH SUBSALICYLATE PER ML OMNICELL CHARGE PO PRN (04:13)
[2020-04-20] MEDS ORDERED: SODIUM CHLORIDE 0.65% NA SOLN 45 ML (OCEAN) PRN (04:13)
[2020-04-20] MEDS ORDERED: MAGNESIUM HYDROXIDE SUSP 30 ML UDC PO PRN (04:13)
[2020-04-20] MEDS ORDERED: ACETAMINOPHEN 325 MG TAB PO PRN (04:13)
[2020-04-20] MEDS ORDERED: ALUMINUM/MAGNESIUM SUSP 30 ML UDC PO PRN (04:13)
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
[2020-04-20] MEDS: NICOTINE 14 MG/24 HR PATCH TD SCH (08:56)
[2020-04-20] MEDS ORDERED: NICOTINE 14 MG/24 HR PATCH TD SCH (09:00)
[2020-04-20] MEDS: haloperidoL 1 MG TAB PO SCH ×2 (11:46→21:03)
[2020-04-20] MEDS ORDERED: haloperidoL 1 MG TAB PO PRN (12:01)
[2020-04-20] MEDS: DEXTROAMPHETAMINE/AMPHETAMINE ER 10 MG CAP PO SCH (13:04)
[2020-04-21 08:48] LABS: Glucose Fasting 90 mg/dl (70-99)
[2020-04-21 08:55] LABS: Chol HDL Ratio 4; Cholesterol 191 mg/dl (0-200); HDL Cholesterol 46 mg/dl; LDL Cholesterol Calculated 119 mg/dl; Triglycerides 132 mg/dl (0-150); VLDL Cholesterol 26 mg/dl
[2020-04-21] MEDS ORDERED: AMPHETAMINE ASP/SULF/DEXTRAMPH ER 20 MG CAP PO SCH (09:00)
[2020-04-21] MEDS: DEXTROAMPHETAMINE/AMPHETAMINE ER 10 MG CAP PO SCH ×2 (09:23→11:57)
[2020-04-21] MEDS: haloperidoL 1 MG TAB PO SCH (09:25)
[2020-04-21] MEDS: NICOTINE 14 MG/24 HR PATCH TD SCH (09:26)
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
[2020-04-21] MEDS ORDERED: haloperidoL 1 MG TAB PO SCH (21:00)
[2020-04-22] MEDS ORDERED: DEXTROAMPHETAMINE/AMPHETAMINE ER 10 MG CAP PO SCH ×2 (08:00→12:00)
[2020-04-22] MEDS: NICOTINE 14 MG/24 HR PATCH TD SCH (09:58)
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
--- NOTE | 2020-04-24 18:39 | Progress Note ---
Date of Service April 24, 2020 Assessment & Plan Admission and Anticipated Discharge Date Admission Date: April 20, 2020 Subjective Contacted last pm that patient called unit requesting return to work letter. She initially asked that letter be emailed to her and when staff indicated that is not our policy, she verbalized desire to have documentation faxed directly to her employer ([employer]) and would call in am (04/24) with number/to confirm. She contacted unit at 1300 and spoke with Frank Salazar RN and again verbalized desire to have letter faxed to employer. Given nature of discharge, provided only dates of hospitalization on standard [facility] letterhead. Liaison to fax. Patient also questioned aftercare. Patient's FAVIOLA Thomas was involved in her hospitalization and will be meeting her 04/26/20 for her hearing. She has already been offered an appointment by her insurance company for telepsych. If needs additional documentation for return to work would suggest she contact PCP or therapist pending psychiatry appt.
[2020-04-26 06:19] LABS: Amphetamine Urine, Confirm >15000 ng/mL (<250); MDA negative; MDEA negative; MDMA (Ecstasy) Urine, Confirm negative; Marijuana Quant, GCMS Urine 182 ng/mL (<5); Methamphetamine, Ur Confirm NEGATIVE ng/mL (<250)
== END 2020-04-22 11:55 | disposition left against medical advice (07) | DRG 885 ==
LOC: ED 20:00 → 3S 04-20 02:06